=== PATIENT | female | born 1955 | race African-American/Black ===

== ENCOUNTER 2017-01-13 18:05 | Inpatient (IN) | payer MEDICARE, OTHER ==
--- NOTE | ~2017-01-13 | CN ---
Consultation Report [facility] [place] [address] [place]. [address] NAME: JOHN QUINTERO : 53 STATUS : ADM IN PAT#: [id number] AGE: 62 ADM/REG DATE : 01/13/17 MR#: [id number] REPORT SERV DATE: 01/14/17 DICTATED BY: ADANDELIA ALEN DATE: 01/14/17 REPORT STATUS : Draft TRANSCRIBED BY: MODL DATE: 01/14/17 CONSULTATION REPORT DATE OF CONSULTATION: 01/13/2017 REASON FOR CONSULTATION: Consulted for hypertension. IDENTIFYING DATA: 1. PCP Dr. Marc Mark. 2. Neurologist, Dr. Etelvina Macdonald. 3. Submarine Element Coordinator, Dr. Misha Jones. 4. Urologist Dr. Clark Watt III. 5. Surgeon, Dr. Too Zamora. 6. Orthopedist in the past seen by Dr. Boaz Berrios, Asif Rouse, now Dr. Jonel Richardson. 7. Copy Writer, Dr. Malika Martinez. 8. Database Reporting Consultant, Dr. Blu Cesar. 9. Spray Gun Striper, Dr. Piero Liu. HISTORY OF PRESENT ILLNESS: This is a pleasant 62-year-old female with a longstanding history of myasthenia gravis, chronic lumbar pain, radiculopathy, hypertension, previous DVT in the right arm on chronic Coumadin who is admitted for a postop wound infection from a lumbar laminectomy of L4-S1 on 12/24/2016. She is scheduled for procedure in the morning on 01/14/2017 for an irrigation and debridement of lumbar spine wound with Dr. Jonel Richardson. The hospitalist group was consulted for hypertension. The patient's history was obtained through careful interview with the patient coupled with review of [employer], [employer], presales consultant notes and old medical records. PAST MEDICAL HISTORY: 1. The patient wears glasses. Lumbar radiculopathy. 2. Right arm DVT in 2009, on chronic Coumadin. 3. Cervical spinal stenosis. 4. Hemorrhoids. 5. Osteoarthritis. 6. Hypertension. 7. Myasthenia gravis diagnosed in 1972 for which the patient states her left side is affected weaker than the right and she has vision loss in the left eye. 8. Shoulder, hip, and knee pain. 9. Bile acid dumping which she has chronic diarrhea seen by Dr. Piero Liu. 10.Herniation of nucleus pulposus. 11.Spondylolisthesis. 12.Cystocele and rectocele. 13.Asthma. 14.Diplopia which she states is in her left eye for which she does wear a patch at times Consultation Report [facility] [place] [address] [place]. [address] NAME: JOHN QUINTERO : 53 STATUS : ADM IN PAT#: [id number] AGE: 62 ADM/REG DATE : 01/13/17 MR#: [id number] REPORT SERV DATE: 01/14/17 DICTATED BY: DELIA ARELLANO DATE: 01/14/17 REPORT STATUS : Draft TRANSCRIBED BY: MODL DATE: 01/14/17 to that eye. 15.Morbid obesity. BMI of 41.2 and a weight of 240 pounds. 16.Diabetes in the past, even though the patient relates that she is not diabetic but she is on chronic prednisone and has had elevated blood sugars post surgery prior. 17.Left kidney cyst. HOME MEDICATIONS: 1. Atenolol 150 mg p.o. every morning. 2. Keflex 500 mg p.o. twice a day previously started for infection. 3. Prevalite packet 4 g p.o. three times daily for her chronic diarrhea. 4. Neurontin 600 mg p.o. three times daily. 5. IVIG which she sees her neurologist Dr. Etelvina Macdonald, and she received the IVIG one dose daily for five consecutive days every five weeks in Dr. Macdonald's office. 6. Imodium 2 mg p.o. three times daily for diarrhea. 7. CellCept 1000 mg p.o. b.i.d. for her myasthenia gravis. 8. Percocet 5/325 two tablets p.o. every four hours p.r.n. pain. 9. K-Dur 20 mEq p.o. at bedtime. 10.Prednisone 10 mg p.o. every morning which is maintenance therapy for her myasthenia gravis. 11.Mestinon 60 mg p.o. three times daily for her myasthenia gravis. 12.Aldactone 50 mg p.o. every morning. 13.Xopenex two puffs inhalation every three hours p.r.n. shortness of breath. 14.Diovan 320 mg p.o. every morning. 15.Coumadin 4 mg p.o. at bedtime. ALLERGIES: NO KNOWN ALLERGIES. SOCIAL HISTORY: The patient is disabled and lives in a multilevel home with her mother and brother and [id number], uses a walker occasionally a cane, is single and has no children. No smoking, no alcohol. No illicit drug use. FAMILY HISTORY: Family history positive for diabetes and heart disease. Mother had breast cancer and colon polyps. Father was from an MVA. Patient has one brother. SURGICAL HISTORY: 1. Cholecystectomy in the year 1999. 2. Tonsillectomy 1992. 3. Closed fracture of the ankle on 02/16/2013. 4. D and C in 2004. 5. Thymectomy in 1972. 6. Hysterectomy for uterine cancer in 08/2015. 7. Right knee scope in 2007. 8. Left shoulder scope by Dr. Boaz Berrios at that time in 06/2011. 9. Lumbar laminectomy 12/24/2016. 10.Right Port-A-Cath placement in [address] Too Zamora for her plasmapheresis and Consultation Report [address] [address] NAME: JOHN QUINTERO : 53 STATUS : ADM IN [facility]#: [id number] AGE: 62 ADM/REG DATE : 01/13/17 MR#: [id number] REPORT SERV DATE: 01/14/17 DICTATED BY: DELIA ARELLANO DATE: 01/14/17 REPORT STATUS : Draft TRANSCRIBED BY: MODL DATE: 01/14/17 IVIG. 11.Right TKA in 06/21/[address] Rouse. 12.Colonoscopy in 2013. 13.Cystoscopy in 08/2014. 14.Microdiskectomy. 15.L-LANE on 02/20/2016. REVIEW OF SYSTEMS: Negative other than what is included in the HPI. The patient has no shortness of breath. No complaints of fever, no complaints of nausea and vomiting. No chest pain. Displays no agitation, does have chronic diarrhea and states she is not in pain at all at present time for her postop wound infection area. PHYSICAL EXAMINATION: VITAL SIGNS: From today blood pressure 109/52, respiratory rate 16, heart rate 98, temperature 97.8, O2 saturation 98% on room air. GENERAL: This is a pleasant 62-year-old female, resting in bed in no acute distress eating dinner. NEURO: Her head is atraumatic, normocephalic. She is alert and oriented x3. Her mood is pleasant and appropriate. NECK: Supple. Trachea is midline. No JVD noted. No obvious thyromegaly or lymphadenopathy. EENT: Her sclerae are nonicteric. Her pupils are equal, reactive to light. Her nares are patent. Her mucous membranes are moist. Her tongue is midline without deviation. Her soft palate rises equally on phonation. CHEST: No pain with palpation. LUNGS: Clear to auscultation bilaterally. She has normal respiratory effort. No increased work of breathing with conversation. CARDIOVASCULAR: S1, S2. No obvious murmurs, rubs, or gallops. Rhythm is regular. EKG on 01/13/2017 displays normal sinus rhythm with a rate of 81. ABDOMEN: Soft, nontender, with active bowel sounds. No palpable organomegaly. Last bowel movement was on 01/13/2017. EXTREMITIES: Pulses present bilaterally, no edema. No calf tenderness. SKIN: Warm and dry. No unusual rashes, lesions, normal color and turgor for age. PSYCH: The patient is pleasant, cooperative, appropriate mood and affect. SURGICAL WOUND SITE: Her lumbar spine dressing is dry and intact. LABORATORY DATA: Sodium 137, potassium 4.2, chloride 104, BUN 19 creatinine 1.04, glucose 131, calcium 8.8. White blood cell 13.6, hemoglobin 11.2, hematocrit 35.6, platelets 291,000, total protein 7.4, albumin 2.7, globulin 4.7, total bilirubin 0.4, alkaline phosphatase 318, ALT 19, AST 28, PT 22.4, INR 2.0, hemoglobin A1c 6.2, blood sugars were 131 on labs and presently blood sugar is 87, ordered a chest x-ray for 01/13/2017. EKG done on 01/13/2017 displayed normal sinus rhythm, rate of 81. ASSESSMENT/PLAN: Consultation Report [facility] [address] [place]. [address] NAME: JOHN QUINTERO : 53 STATUS : ADM IN [facility]#: [id number] AGE: 62 ADM/REG DATE : 01/13/17 MR#: [id number] REPORT SERV DATE: 01/14/17 DICTATED BY: ADANDELIAN DATE: 01/14/17 REPORT STATUS : Draft TRANSCRIBED BY: HIEN DATE: 01/14/17 1. Hypertension. Aware. The patient does have a history of high blood pressure although she relates her blood pressure has been running on the low side within the last week or so. We will hold her diuretic and valsartan postoperatively and continue her atenolol with parameters to hold for heart rate less than 60 and systolic blood pressures less than 110. 2. Myasthenia gravis. Aware, followed by a neurologist Dr. Sophie Macdonald. She does have a consult for Dr. Macdonald to follow her postoperatively in the hospital. We will continue her medications of prednisone, CellCept, and Mestinon for her myasthenia gravis. 3. Elevated glucose. On labs, her blood sugar was 133. She states that they have told her she has had a history of diabetes, but she is followed by her PCP and he states that her A1c was within range. She is not on any medications for diabetes. No history per patient. We will check her hemoglobin A1c which we did which was 6.2, but since she will probably receive IV steroids postoperatively, we will continue fingerstick blood sugars a.c. and h.s. and staff can call for blood sugars greater than 150. 4. Asthma. Aware. She is on inhalation therapy p.r.n. at home. We will continue defensive monitoring and monitor her O2 saturation. She does have chronic weakness due to her myasthenia gravis and will also continue her Xopenex. 5. Postoperative wound. Aware. The patient is admitted by Dr. Jonel Richardson for an a.m. procedure for her postop wound infection. Orders will be per Dr. Richardson and orders at present are to hold antibiotics until cultures are obtained. A.m. labs, BMP, magnesium CBC, hemoglobin A1c, urinalysis, portable chest x-ray, EKG PT and INR and phosphorus. The hospitalist group would like to thank you for this consultation. Please let us know if we can be of any further assistance. ANNETTA Delia Arellano NP / [id number] CC: DO Marc Greer M.D.
--- NOTE | ~2017-01-13 | OP ---
Record Of Operation [facility] [address] [place]. [address] NAME: JOHN QUINTERO : 53 STATUS : ADM IN PAT#: [id number] AGE: 62 ADM/REG DATE : 01/13/17 MR#: [id number] REPORT SERV DATE: 01/16/17 DICTATED BY: JONEL TINOCO DATE: 01/16/17 REPORT STATUS : Draft TRANSCRIBED BY: MODL DATE: 01/16/17 DATE OF PROCEDURE: 01/16/2017 PREOPERATIVE DIAGNOSIS: Superficial wound infection, lumbar spine. POSTOPERATIVE DIAGNOSIS: Superficial wound infection, lumbar spine. PROCEDURE: Removal of previously placed VAC sponge, primary wound closure, irrigation and debridement (washout) and placement of Prevena incisional VAC sponge. SURGEON: Jonel Tinoco DO. ANESTHESIA: General. ESTIMATED BLOOD LOSS: 5 mL. COMPLICATIONS: None. INDICATIONS: The patient is a pleasant, 62-year-old, who had, had a previous lumbar fusion, had a wound dehiscence, and superficial infection, was taken to the OR two days ago, had a washout and debridement of skin and subcutaneous tissue. She had a VAC sponge placed and brought back today for possible closure. DESCRIPTION OF PROCEDURE: I identified the patient in the holding area. Consent was obtained. Went to the operating room. Underwent general anesthesia with endotracheal intubation. Prepped and draped in the usual sterile fashion. Operative safety pause was performed, and then proceeded. Wound VAC was removed, 3 L of pulsatile irrigation used for irrigation, followed by Betadine and saline irrigation. Wound was then reapproximated with #1 and 2-0 PDS nylon for skin and Prevena incisional VAC sponge was placed over the skin. The patient was awoken and extubated taken to the recovery room in stable condition. OPERATIVE FINDINGS: No signs of purulence or infected material. FUENTES/HIEN Jonel Tinoco DO / [id number] CC: DO Marc Greer M.D.
--- NOTE | ~2017-01-13 | CN ---
Consultation Report [facility] [address] [place]. [address] NAME: JOHN QUINTERO : 53 STATUS : ADM IN [facility]#: [id number] AGE: 62 ADM/REG DATE : 01/13/17 MR#: [id number] REPORT SERV DATE: 01/15/17 DICTATED BY: MOSHE MCMILLAN DATE: 01/15/17 REPORT STATUS : Draft TRANSCRIBED BY: MODL DATE: 01/15/17 INFECTIOUS DISEASE CONSULT DATE OF CONSULTATION: REASON FOR REFERRAL: Evaluation and treatment of postoperative wound infection. HISTORY OF PRESENT ILLNESS: The patient is a 62-year-old female. She has a history of hypertension and myasthenia gravis that was diagnosed in the early 1970s. She has had chronic difficulties with back pain, spine pathology, and so underwent an elective procedure here at [facility] on 12/24/[address] Richardson an L4-S1 laminectomy and instrumented fusion. In her postoperative visit, her wound was not healing and concern raised for infection. She had no fevers, chills, malaise, or flu-like symptoms. No increased pain, just poor closure. New dressing was placed on it on 12/12/2016 and she was started empirically on Keflex, but it continued to worsen, so Dr. Richardson saw her two days ago, admitted her and did an incision and drainage yesterday with findings of no gross purulence, no evidence of deep infection. She has remained afebrile here. She received empiric vancomycin and Ancef at the time of procedure. The cultures were reviewed by me this morning and there were three colonies of gram-negative rods growing with no other organisms. No bacteria were seen on Gram stain. PAST MEDICAL HISTORY: Otherwise, unremarkable. There have been no unusual environmental exposures or trauma to the wound since the time of surgery. MEDICATIONS: She was on Keflex as previously mentioned. ALLERGIES: NO ANTIMICROBIAL ALLERGIES. SOCIAL HISTORY: She has been disabled by this during most of her adult life. She is single, nonsmoker. No history of alcohol or substance abuse. FAMILY HISTORY: Noncontributory. PHYSICAL EXAMINATION: GENERAL: A nontoxic adult female, in no acute distress. She is alert and oriented x3. VITAL SIGNS: Her temperature has been normal, here it is 98.5 at present with a pulse of 71, respirations 20, blood pressure 92/51, weight is 108 kg. HEENT: Sclerae clear. No oropharyngeal lesions. NECK: Supple without lymphadenopathy. LUNGS: Clear to auscultation. HEART: Regular rate and rhythm. ABDOMEN: Soft, nontender. Positive bowel sounds. Back wound is covered by VAC pack. EXTREMITIES: Without clubbing or cyanosis. No skin lesions or rashes. IV site without signs of inflammation. Consultation Report [address] [place] [address] NAME: JOHN QUINTERO : [birth year] STATUS : ADM IN PAT#: [id number] AGE: 62 ADM/REG DATE : 01/13/17 MR#: [id number] REPORT SERV DATE: 01/15/17 DICTATED BY: MOSHE MCMILLAN DATE: 01/15/17 REPORT STATUS : Draft TRANSCRIBED BY: HIEN DATE: 01/15/17 LABORATORY DATA: White blood cell count 13.6 when she came in, reached 17 yesterday, it is 12.2 today with a hematocrit of 31.1, platelets 243. Unremarkable differential on the white blood cell count. BUN and creatinine are 17 and 0.95. Alkaline phosphatase mildly elevated at 318. IMPRESSION: Postoperative wound infection after spine surgery. At this point, does not appear to be deep and is growing just Gram negative rods on cultures. RECOMMENDATIONS: 1. We will change to IV cefepime to cover this organism. We are waiting on final cultures. 2. Review the cultures tomorrow. Change antibiotics as indicated. 3. It does not appear to be deep, so likely just two weeks of antibiotics postoperative will be required. Finally, I will follow the patient with you. I appreciate very much your consulting on this patient. PITER Moshe Mcmillan M.D. / [id number] CC: Jonel Richardson, DO Marc Mark M.D.
--- NOTE | ~2017-01-13 | DS ---
Discharge Summary [facility] [address] [place]. [address] NAME: JOHN QUINTERO : 53 STATUS : DIS IN PAT#: [id number] AGE: 62 ADM/REG DATE : 01/13/17 MR#: [id number] REPORT SERV DATE: 01/24/17 DICTATED BY: JONEL RICHARDSON DATE: 01/24/17 REPORT STATUS : Draft TRANSCRIBED BY: HIEN DATE: 01/24/17 Data Collection from hospitalization DISCHARGE DIAGNOSES: 1. Postoperative wound dehiscence - possible infection. 2. Hypertension. 3. Myasthenia gravis. 4. Arthritis. 5. Diabetes in the past. 6. Hemorrhoids. 7. Diplopia. 8. Morbid obesity. 9. Asthma. 10.History of bile acid dumping. 11.History of herniation of nucleus pulposus. 12.History of spondylolisthesis. 13.History of cystocele and rectocele. CONSULTATIONS: 1. Delia Hampton NP. 2. Ricardo Rajan M.D. 3. Sebas Marcum MD. PROCEDURES PERFORMED: 1. Incision and debridement of the lumbar spine with debridement of skin and underlying subcutaneous tissue, placement of wound VAC sponge, wound was approximately 15 x 6.5 x 2.5 cm in size on 01/14/2017. 2. Removal of previously placed VAC sponge, primary wound closure, irrigation and debridement (washout), and placement of Prevena incisional VAC sponge on 01/16/2017. PATHOLOGY: Skin and subcutaneous tissue, lumbar spine, debridement - transepidermal ulceration with underlying scarring and mixed inflammation. MEDICATIONS: Tenormin 150 mg every morning as instructed, Prevalite 4 g three times a day as instructed, Cipro 500 mg every 12 hours for 12 days, Flexeril 10 mg every eight hours as needed, Neurontin 600 mg three times a day, IVIG one dose as instructed for five consecutive days every five weeks, Imodium 2 mg three times a day, CellCept 1000 mg twice a day as instructed, Percocet 5/325 one to two tablets every four hours as needed, Deltasone 10 mg every morning, Mestinon 60 mg three times a day, Xopenex two puffs via inhaler every three hours as needed, and Coumadin 4 mg at bedtime as instructed. CONDITION AT DISCHARGE: Stable. DISPOSITION: The patient was discharged home on a regular diet with protein shakes and activities as instructed. She would follow up with me two weeks following discharge and with Dr. Marc Mark on 01/22/2017. HOSPITAL COURSE: This is a 62-year-old female who had undergone a previous L4-S1 laminectomy Discharge Summary [facility] [address] [place]. [address] NAME: JOHN QUINTERO : 53 STATUS : DIS IN PAT#: [id number] AGE: 62 ADM/REG DATE : 01/13/17 MR#: [id number] REPORT SERV DATE: 01/24/17 DICTATED BY: JONEL RICHARDSON DATE: 01/24/17 REPORT STATUS : Draft TRANSCRIBED BY: HIEN DATE: 01/24/17 and instrumented fusion by me on 12/24/2016. She had initial wound healing problems and was placed on oral antibiotics and failed to improve. She continued to have an area of dehiscence. She had no purulent drainage, but the skin edges had not approximated well. Treatment options were discussed and it was elected to proceed with surgical intervention. She was admitted to the hospital for further evaluation and treatment. Upon admission, she was seen by Delia Hampton regarding hypertension. White blood cell count was 13.6. Hemoglobin A1c was 6.2. The patient said that her blood pressure had been running on the low side over the past week or so. Her diuretic and valsartan were going to be held postoperatively and we would continue her atenolol with parameters to hold for heart rate less than 60 and systolic blood pressure less than 110. She does have myasthenia gravis and is followed by Dr. Etelvina Macdonald. She is not on any medication for her diabetes. Her hemoglobin A1c was 6.2, but she will probably receive IV steroids postoperatively. She was on inhalation therapy at home. Defensive monitoring was continued. We would monitor her O2 saturation. Xopenex was also continued. The following day, she was taken to the operating room where she underwent the above-mentioned procedure. She tolerated this well, and there were no complications. Blood pressure was currently on the lower side. She was currently n.p.o. IV fluids were increased. On 01/15/2017, her pain was controlled. She remained comfortable. She had no chest pain or shortness of breath. She was afebrile. Her blood pressure was currently borderline in the 90s, systolic. Atenolol would be held if systolic blood pressure was less than 100. Her hyperglycemia was felt related to D5 and the IV fluids. She was seen by Dr. Ricardo Rajan for evaluation and treatment of postoperative wound infection and has remained afebrile here. She received vancomycin and Ancef at the time of her procedure. Cultures that morning revealed 3 colonies of gram-negative rods growing with no other organism. No bacteria were seen on Gram stain. White blood cell count was now 12.2. Alkaline phosphatase was mildly elevated at 318. At this point, the postoperative wound infection after spine surgery did not appear to be deep and was growing just gram-negative rods on culture. We were going to be change to IV cefepime to cover this organism and we would wait on final cultures. It was felt that likely two weeks of antibiotics postoperatively would be required. She was evaluated by Physical Therapy. She was seen by Dr. Sebas Marcum regarding her history of myasthenia gravis. The patient does have baseline left-sided hemiparesis due to her myasthenia gravis, which according to the patient had not been significantly worse. She sees Dr. Etelvina Macdonald for her myasthenia gravis. Her next IVIG infusion was due on 01/20/2017. Her symptoms were currently stable. She was recommended to go ahead with her scheduled IVIG therapy infusions. CellCept, Mestinon, and prednisone were continued. On postop day #2, she had no new symptoms. She remained afebrile. She was evaluated by Physical Therapy. She continued to progress. On 01/17/2017, her pain was controlled. She was doing well. She said she was feeling better. She remained afebrile. Discharge instructions were given. Due to her improved and stable condition, she was discharged home with the above-stated instructions. Information collected by: Mary Sheridan I submit the above information as my discharge summary. TG/MODL Discharge Summary [facility] [address] [address] NAME: JOHN QUINTERO : 53 STATUS : DIS IN PAT#: [id number] AGE: 62 ADM/REG DATE : 01/13/17 MR#: [id number] REPORT SERV DATE: 01/24/17 DICTATED BY: JONEL RICHARDSON DATE: 01/24/17 REPORT STATUS : Draft TRANSCRIBED BY: JACKSONL DATE: 01/24/17 Jonel Richardson DO / [id number] CC: DO Marc Greer M.D. Chun C. Huang, MD Mark Anderson, M.D.
--- NOTE | ~2017-01-13 | HP ---
History And Physical [address] [place]. [address] NAME: JOHN QUINTERO : 53 STATUS : ADM IN PAT#: [id number] AGE: 62 ADM/REG DATE : 01/13/17 MR#: [id number] REPORT SERV DATE: 01/14/17 DICTATED BY: JONEL TINOCO DATE: 01/14/17 REPORT STATUS : Draft TRANSCRIBED BY: MODL DATE: 01/14/17 DATE OF ADMISSION: 01/13/2017 CHIEF COMPLAINT: Postoperative wound dehiscence, possible infection. HISTORY OF PRESENT ILLNESS: The patient is a pleasant 62-year-old who had undergone a previous L4-S1 laminectomy and instrumented fusion by me on 12/24/2016. She had initial wound healing problems and was placed on oral antibiotics and failed to improve and has continued area of dehiscence. No purulent drainage, but the skin edges have not approximated well. As a result, I recommended admission for irrigation and debridement. REVIEW OF SYSTEMS: She denies chest pain, shortness of breath, and bowel or bladder changes. ALLERGIES: DENIED. HOME MEDICATIONS: Include Percocet and Flexeril. PAST MEDICAL HISTORY: Includes hypertension and myasthenia gravis. FAMILY HISTORY: Noncontributory. PHYSICAL EXAMINATION: GENERAL: The patient is healthy appearing, in no acute distress. PSYCH: Alert and oriented x3. Normal mood and affect. Gait is antalgic. VASCULAR: No extremity swelling. SPINE: Postoperative wound dehiscence. NEUROLOGIC: Strength in lower extremities remains intact. No focal deficits. HEART: Regular rate and rhythm. LUNGS: Clear to auscultation. ABDOMEN: Soft, nontender, and nondistended. Good bowel sounds. BREASTS AND RECTAL: Both deferred. IMAGING: No new imaging was obtained. ASSESSMENT: Postoperative wound dehiscence, possible infection. PLAN: The patient is being admitted to the hospital for irrigation and debridement tomorrow. FUENTES/HIEN Jonel Tinoco DO History And Physical [address] [address] NAME: JOHN QUINTERO : 53 STATUS : ADM IN PAT#: [id number] AGE: 62 ADM/REG DATE : 01/13/17 MR#: [id number] REPORT SERV DATE: 01/14/17 DICTATED BY: JONEL TINOCO DATE: 01/14/17 REPORT STATUS : Draft TRANSCRIBED BY: HIEN DATE: 01/14/17 / [id number] CC: DO Marc Greer M.D.
--- NOTE | ~2017-01-13 | OP ---
Record Of Operation [facility] [address] [place]. [address] NAME: JOHN QUINTERO : 53 STATUS : ADM IN PAT#: [id number] AGE: 62 ADM/REG DATE : 01/13/17 MR#: [id number] REPORT SERV DATE: 01/14/17 DICTATED BY: JONEL RICHARDSON DATE: 01/14/17 REPORT STATUS : Draft TRANSCRIBED BY: MODL DATE: 01/14/17 DATE OF PROCEDURE: 01/14/2017 PREOPERATIVE DIAGNOSIS: Postoperative wound dehiscence, possible infection. POSTOPERATIVE DIAGNOSIS: Postoperative wound dehiscence, possible infection. PROCEDURE: 1. Incision and debridement of lumbar spine with debridement of skin and underlying subcutaneous tissue. 2. Placement of wound VAC sponge. Wound was approximately 15 x 6.5 x 2.5 cm in size. SURGEON: Jonel Richardson DO ANESTHESIA: General. ESTIMATED BLOOD LOSS: 10 mL. COMPLICATIONS: None. INDICATIONS: The patient is a pleasant 62-year-old who had a previous lumbar fusion, had postoperative wound dehiscence, possible infection. After discussion of risks and benefits, elected to proceed with surgical intervention. DESCRIPTION OF PROCEDURE: I identified the patient in the holding area. Consent was obtained. Went to the operating room. Underwent general anesthesia with endotracheal intubation. Turned to prone position, prepped and draped in the usual sterile fashion. Operative safety pause was performed, then we proceeded. An elliptical incision was made over her previous surgical wound. It was excised along with underlying subcutaneous tissue. Cultures were obtained at that layer and sent for pathologic analysis. 3 liters of pulsatile irrigation were performed. At that point, it was felt that the skin edges were too far apart and would have too much tension for primary closure. The edges on each ends were closed with #1 and 2-0 PDS and then a VAC sponge was placed in the central portion of the incision and had a good seal. The patient returned to supine position, awoke, extubated, and taken to recovery room in stable condition with plans for return to the OR on for VAC sponge change and possible wound closure. OPERATIVE FINDINGS: No signs of purulent material. No signs of infection. No communication with the deep layer. The fascial layer was intact. FUENTES/HIEN Jonel Richardson DO Record Of Operation [address] [place]. [address] NAME: JOHN QUINTERO : 53 STATUS : ADM IN PAT#: [id number] AGE: 62 ADM/REG DATE : 01/13/17 MR#: [id number] REPORT SERV DATE: 01/14/17 DICTATED BY: JONEL RICHARDSON DATE: 01/14/17 REPORT STATUS : Draft TRANSCRIBED BY: HIEN DATE: 01/14/17 / [id number] CC: DO Marc Greer M.D.
--- NOTE | ~2017-01-13 | CN ---
Consultation Report [facility] [address] [facility] [place] [address] NAME: JOHN QUINTERO : 53 STATUS : ADM IN PAT#: [id number] AGE: 62 ADM/REG DATE : 01/13/17 MR#: [id number] REPORT SERV DATE: 01/15/17 DICTATED BY: DATE: REPORT STATUS : Draft TRANSCRIBED BY: MODL DATE: 01/15/17 NEUROLOGY CONSULTATION DATE OF CONSULTATION: 01/15/2017 REASON FOR CONSULT: History of myasthenia gravis. HISTORY OF PRESENT ILLNESS: This is a 62-year-old female with longstanding myasthenia gravis, currently on CellCept, prednisone as well as Mestinon with the patient received IVIG for five days every five weeks, presented to [facility] secondary to wound dehiscence on a previous lumbar spine surgery and concern for possible infection. The patient was status post surgical debridement and drainage on 01/14/2017. Currently denies any worsening of myasthenia gravis and she specifically denies significant breathing difficulty. Denies dysarthria. Denies dysphagia. Denies worsening diplopia. The patient does have baseline left-sided hemiparesis due to her myasthenia gravis which according to the patient has not been significantly worse. Denies any numbness. The patient denies any recent changes in medication. She at baseline sees Dr. Etelvina Macdonald for her myasthenia gravis. Her next IVIG infusion is due on January 20, 2017. PAST MEDICAL HISTORY: Significant for lumbar radiculopathy with recent lumbar spine surgery as well as wound dehiscence, status post surgical debridement on 01/14/2017 with a history of right arm DVT on chronic Coumadin, history of cervical spine stenosis, hemorrhoids, osteoarthritis, hypertension, myasthenia gravis, currently is evaluated and followed by Dr. Etelvina Macdonald. Shoulder and hip as well as knee pain syndrome, radiation; cystocele as well as rectocele; asthma; baseline diplopia; diabetes, the patient at baseline ambulates with a walker. ALLERGIES: SHE REPORTS NO KNOWN DRUG ALLERGIES. HOME MEDICATIONS: Consist of atenolol, Keflex, cholestyramine, Neurontin, IVIG every 5 weeks with next dose scheduled on 01/20/2017; Imodium; CellCept; Percocet; potassium; prednisone; Mestinon; Aldactone; Xopenex inhaler; Diovan; and Coumadin. REVIEW OF SYSTEMS: Negative except for those mentioned in the HPI. SOCIAL HISTORY: Denies tobacco, alcohol, or recreational drug usage. PHYSICAL EXAMINATION: VITAL SIGNS: Overnight patient was noted to have vital signs with T-max of 98.5, heart rate of 71 to 100, respiration of 20 to 27, and blood pressure of 91 to 110 over 50 to 86. GENERAL: The patient is well developed, well nourished, in no acute distress. CARDIOVASCULAR: Regular rate and rhythm. No carotid bruits were otherwise auscultated. PULMONARY: Clear to auscultation bilaterally. Consultation Report [address] [place]. [address] NAME: JOHN QUINTERO : 53 STATUS : ADM IN PAT#: [id number] AGE: 62 ADM/REG DATE : 01/13/17 MR#: [id number] REPORT SERV DATE: 01/15/17 DICTATED BY: DATE: REPORT STATUS : Draft TRANSCRIBED BY: MODL DATE: 01/15/17 NEUROLOGICAL: Generally the patient is alert, oriented to person, place, year, and month. Mild dysarthria was noted. No significant aphasia was appreciated. Intact registration and recall. Cranial nerves 2 through 12, pupils equal, round, and reactive to light. Dysconjugate gaze was noted with the patient was noted to have extraocular eye movement. Intact blink to threat response was noted to be intact. Symmetrical facial expression. Sensation midline. Tongue normal. Normal palatal movement. Normal hearing. The patient demonstrated 4+/5 left upper and left lower extremity strength; 5/5 right upper and right lower extremity strength. Reports symmetrical sensation. Normal [id number] examination without ataxia. Deep tendon reflex was 2+ throughout. Gait was deferred secondary to recent lumbar spine surgery. LABORATORY STUDIES: Demonstrated white blood cell count of 12.2, hemoglobin of 9.2, hematocrit of 31.1, and platelet count of 243. Chemistry panel: Sodium 136, potassium 4.6, chloride 106, bicarb 20, BUN of 17, creatinine of 0.95, glucose of 158, and calcium of 8.2. was otherwise available at the time of evaluation. IMPRESSION: Myasthenia gravis. Currently symptoms stable. The patient denies any significant worsening compared to baseline symptoms. We are recommending continued CellCept, Mestinon as well as prednisone, PT/OT. If the patient is unfortunately still in the hospital by 01/20/2017, we are recommending to go ahead with the patient's scheduled IVIG therapy infusion. RECOMMENDATION: 1. Continue CellCept, Mestinon, as well as prednisone. 2. We will start the patient on IVIG infusion of 4 to 5 days if the patient is still in the hospital by 01/20/2017. 3. PT/OT. 4. We will sign off. Call with questions. [facility]/MODL Sebas Marcum MD / [id number] CC: DO Marc Greer M.D.
[~2017-01-13 18:05] MED LIST: ACET500CAP PO; ATEN100 PO; ATEN50 PO; CELLCEPT5 PO; COUMADIN4 MG PO; DIOVAN320 MG PO; FLEX PO; GAMUNEX 10%; IMOD PO; IVIG IM; IVIGPOW; IVIGPOW IV; KLOR-CON M2020 MEQ PO; LORTAB 5 PO; MICARDIS80 PO; NEUR300 PO; NEUR600 PO; NORCO1 TA1 PO; ORAPRED ODT10 MG PO; P10 PO; PCET PO; PROVHFA INH; PYRID60 PO; QUESTRAN4 GM PO; SPIRO50 PO; TYLENOL ARTH650 MG PO; ULTRAM50 PO; VESICARE5 PO; VOLTAREN1 % TOP; XOPEN0.5ML INH; XOPENEX HFA INH; ZAROX2.5B PO; [UNRECOGNIZED DRUG - OTHER] PO
[2017-01-13 19:29] LABS: HEMOGLOBIN 11.2 g/dL (12.0-16.0); MEAN CORPUS HGB CONC 31.5 g/dL (32.0-36.0); MEAN CORPUSCULAR HEMOGLOB 30.5 pg (26.0-34.0); MEAN PLATELET VOLUME 9.6 fL (9.2-13.0); RBC DISTRIBUTION WIDTH 13.6 % (12.0-16.0); RED CELL COUNT 3.67 10/6/uL (4.0-5.6); WHITE BLOOD CELLS 13.6 10/3/uL (4.5-10.5)
[2017-01-13 19:31] LABS: HEMATOCRIT 35.6 % (36.0-48.0); MANUAL DIFF YES %; PLATELET COUNT 291 10/3/uL (150-400)
[2017-01-13 19:41] LABS: A/G RATIO 0.6 (0.7-1.9); ALBUMIN 2.7 G/DL (3.5-5.0); ALKALINE PHOSPHATASE 318 U/L (45-117); BUN (BLOOD UREA NITROGEN) 19 MG/DL (6-23); CALCIUM, SERUM 8.8 MG/DL (8.5-10.4); CHLORIDE, SERUM 104 MMOL/L (96-112); CO2 (CARBON DIOXIDE) 26 MMOL/L (24-34); CREATININE 1.04 MG/DL (0.55-1.02); GFR AFRICAN AMERICAN 66 ML/MIN (>=60); GFR NON AFRICAN AMERICAN 57 ML/MIN (>=60); GLOBULIN 4.7 G/DL (2.5-4.1); GLUCOSE, SERUM 131 MG/DL (60-99); POTASSIUM, SERUM 4.2 MMOL/L (3.5-5.3); SGOT(AST) 28 U/L (5-40); SGPT(ALT) 19 U/L (5-65); SODIUM, SERUM 137 MMOL/L (135-148); TOTAL BILIRUBIN 0.4 MG/DL (0-1.2); TOTAL PROTEIN 7.4 G/DL (6.0-8.5)
[2017-01-13 20:45] LABS: EOSINOPHILS 2 %; EOSINOPHILS ABSOLUTE (CALC) 0.27 10/3/uL (0.0-0.53); IMMATURE GRANS ABSOLUTE (CALC) 0.14 10/3/uL (0.0-0.11); LYMPHOCYTES 16 %; LYMPHOCYTES ABSOLUTE (CALC) 2.18 10/3/uL (0.67-4.30); METAMYELOCYTES 1 %; MONOCYTES 3 %; MONOCYTES ABSOLUTE (CALC) 0.41 10/3/uL (0.21-1.20); NEUTROPHILS ABSOLUTE (CALC) 10.61 10/3/uL (2.02-8.40); PLATELET ESTIMATE ADQ (ADEQUATE); RBC MORPHOLOGY NORM (NORMAL); SEGMENTED NEUTROPHIL (0) 78 %; TOTAL NUCLEATED CELLS 100
[2017-01-13 21:09] LABS: SED RATE 69 MM/HR (0-20)
[2017-01-13 21:34] LABS: C-REACTIVE PROTEIN 20.4 MG/L (<8.0)
[2017-01-13 21:36] LABS: PHOSPHORUS, SERUM 3.5 MG/DL (2.5-4.5)
[2017-01-13] MEDS ORDERED: IVIGLIQ IV (22:12)
[2017-01-13] MEDS ORDERED: PYRID60 PO (22:14)
[2017-01-13] MEDS ORDERED: CELLCEPT5 PO (22:14)
[2017-01-13] MEDS ORDERED: DIOVAN320 MG PO (22:15)
[2017-01-13] MEDS ORDERED: ATEN50 PO (22:15)
[2017-01-13] MEDS ORDERED: P10 PO (22:15)
[2017-01-13] MEDS ORDERED: SPIRO50 PO (22:15)
[2017-01-13] MEDS ORDERED: IMOD PO (22:16)
[2017-01-13] MEDS ORDERED: KDUR20 PO (22:16)
[2017-01-13] MEDS ORDERED: PREVALITE4 G1 PO (22:16)
[2017-01-13] MEDS ORDERED: COUMADIN4 MG PO (22:16)
[2017-01-13] MEDS ORDERED: XOPENEX HFA INHALER INH (22:17)
[2017-01-13] MEDS ORDERED: PCET PO (22:18)
[2017-01-13] MEDS ORDERED: NEUR600 PO (22:18)
[2017-01-13] MEDS ORDERED: K500 PO (22:19)
[2017-01-13 23:09] LABS: PROTIME (NOT ORD) 22.4 SEC (12.0-14.5)
[2017-01-14 01:28] LABS: ASCORBIC ACID (UR NOT ORDER) NEG (NEG); BILIRUBIN, URINE NEGATIVE (NEG); KETONE, URINE NEGATIVE (NEG); LEUKOCYTE ESTERASE(NOT OR NEG (NEG); WBC (NOT ORDERED) (RFLEX) 1 (0-5)
[2017-01-14 10:32] LABS: BASOPHILS 0.2 %; BASOPHILS ABSOLUTE 0.04 10/3/uL (0.0-0.16); EOSINOPHILS 1.1 %; EOSINOPHILS ABSOLUTE 0.19 10/3/uL (0.0-0.53); HEMATOCRIT 35.9 % (36.0-48.0); IMMATURE GRANULOCYTES 0.5 %; IMMATURE GRANULOCYTES ABSOLUTE 0.09 10/3/uL (0.0-0.11); LYMPHOCYTES 17.9 %; LYMPHOCYTES ABSOLUTE 3.05 10/3/uL (0.67-4.30); MEAN CORPUS HGB CONC 30.6 g/dL (32.0-36.0); MEAN CORPUSCULAR HEMOGLOB 29.2 pg (26.0-34.0); MEAN CORPUSCULAR VOLUME 95.2 fL (80-100); MEAN PLATELET VOLUME 9.8 fL (9.2-13.0); MONOCYTES 9.2 %; MONOCYTES ABSOLUTE 1.56 10/3/uL (0.21-1.20); NEUTROPHILS 71.1 %; PLATELET COUNT 266 10/3/uL (150-400); RBC DISTRIBUTION WIDTH 13.8 % (12.0-16.0); RED CELL COUNT 3.77 10/6/uL (4.0-5.6)
[2017-01-14 10:33] LABS: MANUAL DIFF NO %
[2017-01-14 10:43] LABS: BUN (BLOOD UREA NITROGEN) 20 MG/DL (6-23); CHLORIDE, SERUM 105 MMOL/L (96-112); CO2 (CARBON DIOXIDE) 25 MMOL/L (24-34); CREATININE 0.85 MG/DL (0.55-1.02); GFR AFRICAN AMERICAN 85 ML/MIN (>=60); GFR NON AFRICAN AMERICAN 73 ML/MIN (>=60); GLUCOSE, SERUM 83 MG/DL (60-99); POTASSIUM, SERUM 4.8 MMOL/L (3.5-5.3); SODIUM, SERUM 140 MMOL/L (135-148)
[2017-01-14 11:28] LABS: HYPOCHROMIA 1+ (3-10/OIF) (0-2/OIF); PLATELET ESTIMATE ADQ (ADEQUATE)
[2017-01-14 18:22] LABS: BASOPHILS 0.1 %; BASOPHILS ABSOLUTE 0.01 10/3/uL (0.0-0.16); EOSINOPHILS 0.8 %; HEMATOCRIT 33.7 % (36.0-48.0); HEMOGLOBIN 10.1 g/dL (12.0-16.0); IMMATURE GRANULOCYTES 0.2 %; IMMATURE GRANULOCYTES ABSOLUTE 0.03 10/3/uL (0.0-0.11); LYMPHOCYTES 9.2 %; LYMPHOCYTES ABSOLUTE 1.16 10/3/uL (0.67-4.30); MEAN CORPUSCULAR HEMOGLOB 28.8 pg (26.0-34.0); MEAN PLATELET VOLUME 9.3 fL (9.2-13.0); MONOCYTES ABSOLUTE 0.63 10/3/uL (0.21-1.20); NEUTROPHILS 84.7 %; NEUTROPHILS ABSOLUTE 10.68 10/3/uL (2.02-8.40); PLATELET COUNT 264 10/3/uL (150-400); RBC DISTRIBUTION WIDTH 13.9 % (12.0-16.0); RED CELL COUNT 3.51 10/6/uL (4.0-5.6); WHITE BLOOD CELLS 12.6 10/3/uL (4.5-10.5)
[2017-01-14 18:23] LABS: MANUAL DIFF NO %
[2017-01-14 18:34] LABS: BUN (BLOOD UREA NITROGEN) 16 MG/DL (6-23); CALCIUM, SERUM 8.7 MG/DL (8.5-10.4); CHLORIDE, SERUM 104 MMOL/L (96-112); CO2 (CARBON DIOXIDE) 28 MMOL/L (24-34); CREATININE 0.94 MG/DL (0.55-1.02); GFR AFRICAN AMERICAN 75 ML/MIN (>=60); GFR NON AFRICAN AMERICAN 65 ML/MIN (>=60); GLUCOSE, SERUM 105 MG/DL (60-99); SODIUM, SERUM 139 MMOL/L (135-148)
[2017-01-15 08:20] LABS: BASOPHILS 0.2 %; BASOPHILS ABSOLUTE 0.02 10/3/uL (0.0-0.16); EOSINOPHILS 2.2 %; EOSINOPHILS ABSOLUTE 0.27 10/3/uL (0.0-0.53); HEMATOCRIT 31.1 % (36.0-48.0); HEMOGLOBIN 9.2 g/dL (12.0-16.0); IMMATURE GRANULOCYTES 0.2 %; IMMATURE GRANULOCYTES ABSOLUTE 0.03 10/3/uL (0.0-0.11); LYMPHOCYTES 19.6 %; MANUAL DIFF NO %; MEAN CORPUS HGB CONC 29.6 g/dL (32.0-36.0); MEAN CORPUSCULAR HEMOGLOB 29.2 pg (26.0-34.0); MEAN CORPUSCULAR VOLUME 98.7 fL (80-100); MEAN PLATELET VOLUME 9.2 fL (9.2-13.0); MONOCYTES 6.9 %; MONOCYTES ABSOLUTE 0.85 10/3/uL (0.21-1.20); NEUTROPHILS 70.9 %; NEUTROPHILS ABSOLUTE 8.67 10/3/uL (2.02-8.40); PLATELET COUNT 243 10/3/uL (150-400); RBC DISTRIBUTION WIDTH 13.9 % (12.0-16.0); RED CELL COUNT 3.15 10/6/uL (4.0-5.6); WHITE BLOOD CELLS 12.2 10/3/uL (4.5-10.5)
[2017-01-15 08:38] LABS: BUN (BLOOD UREA NITROGEN) 17 MG/DL (6-23); CALCIUM, SERUM 8.2 MG/DL (8.5-10.4); CHLORIDE, SERUM 106 MMOL/L (96-112); CREATININE 0.95 MG/DL (0.55-1.02); GFR AFRICAN AMERICAN 74 ML/MIN (>=60); GFR NON AFRICAN AMERICAN 64 ML/MIN (>=60); POTASSIUM, SERUM 4.6 MMOL/L (3.5-5.3); SODIUM, SERUM 136 MMOL/L (135-148)
[2017-01-15 08:39] LABS: CO2 (CARBON DIOXIDE) 20 MMOL/L (24-34); GLUCOSE, SERUM 158 MG/DL (60-99)
[2017-01-16 14:51] LABS: CALCIUM, SERUM 8.3 MG/DL (8.5-10.4); CHLORIDE, SERUM 109 MMOL/L (96-112); CREATININE 0.72 MG/DL (0.55-1.02); GFR AFRICAN AMERICAN 103 ML/MIN (>=60); GFR NON AFRICAN AMERICAN 89 ML/MIN (>=60); POTASSIUM, SERUM 4.2 MMOL/L (3.5-5.3)
[2017-01-16 14:53] LABS: BUN (BLOOD UREA NITROGEN) 13 MG/DL (6-23); CO2 (CARBON DIOXIDE) 26 MMOL/L (24-34); GLUCOSE, SERUM 87 MG/DL (60-99); SODIUM, SERUM 143 MMOL/L (135-148)
[2017-01-16 14:53] LABS: BASOPHILS 0.2 %; BASOPHILS ABSOLUTE 0.03 10/3/uL (0.0-0.16); EOSINOPHILS 3.6 %; EOSINOPHILS ABSOLUTE 0.48 10/3/uL (0.0-0.53); HEMATOCRIT 30.2 % (36.0-48.0); HEMOGLOBIN 9.3 g/dL (12.0-16.0); IMMATURE GRANULOCYTES 0.3 %; IMMATURE GRANULOCYTES ABSOLUTE 0.04 10/3/uL (0.0-0.11); LYMPHOCYTES 17.6 %; LYMPHOCYTES ABSOLUTE 2.34 10/3/uL (0.67-4.30); MANUAL DIFF NO %; MEAN CORPUS HGB CONC 30.8 g/dL (32.0-36.0); MEAN CORPUSCULAR HEMOGLOB 29.7 pg (26.0-34.0); MEAN CORPUSCULAR VOLUME 96.5 fL (80-100); MEAN PLATELET VOLUME 9.4 fL (9.2-13.0); MONOCYTES 10.7 %; MONOCYTES ABSOLUTE 1.43 10/3/uL (0.21-1.20); NEUTROPHILS 67.6 %; NEUTROPHILS ABSOLUTE 8.99 10/3/uL (2.02-8.40); PLATELET COUNT 215 10/3/uL (150-400); RBC DISTRIBUTION WIDTH 13.7 % (12.0-16.0); RED CELL COUNT 3.13 10/6/uL (4.0-5.6); WHITE BLOOD CELLS 13.3 10/3/uL (4.5-10.5)
[2017-01-17 05:41] LABS: BUN (BLOOD UREA NITROGEN) 10 MG/DL (6-23); CALCIUM, SERUM 8.2 MG/DL (8.5-10.4); CHLORIDE, SERUM 106 MMOL/L (96-112); CO2 (CARBON DIOXIDE) 25 MMOL/L (24-34); CREATININE 0.79 MG/DL (0.55-1.02); GFR AFRICAN AMERICAN 92 ML/MIN (>=60); GFR NON AFRICAN AMERICAN 80 ML/MIN (>=60); GLUCOSE, SERUM 92 MG/DL (60-99); SODIUM, SERUM 142 MMOL/L (135-148)
[2017-01-17 07:20] LABS: BASOPHILS 0.2 %; BASOPHILS ABSOLUTE 0.02 10/3/uL (0.0-0.16); EOSINOPHILS 4.9 %; EOSINOPHILS ABSOLUTE 0.44 10/3/uL (0.0-0.53); HEMATOCRIT 32.8 % (36.0-48.0); HEMOGLOBIN 9.9 g/dL (12.0-16.0); IMMATURE GRANULOCYTES 0.1 %; IMMATURE GRANULOCYTES ABSOLUTE 0.01 10/3/uL (0.0-0.11); LYMPHOCYTES 22.6 %; LYMPHOCYTES ABSOLUTE 2.03 10/3/uL (0.67-4.30); MEAN CORPUS HGB CONC 30.2 g/dL (32.0-36.0); MEAN CORPUSCULAR HEMOGLOB 29.1 pg (26.0-34.0); MEAN CORPUSCULAR VOLUME 96.5 fL (80-100); MEAN PLATELET VOLUME 10.2 fL (9.2-13.0); MONOCYTES 6.2 %; MONOCYTES ABSOLUTE 0.56 10/3/uL (0.21-1.20); NEUTROPHILS ABSOLUTE 5.91 10/3/uL (2.02-8.40); PLATELET COUNT 267 10/3/uL (150-400); RBC DISTRIBUTION WIDTH 13.9 % (12.0-16.0)
[2017-01-17 07:21] LABS: MANUAL DIFF NO %
[2017-01-17] MEDS ORDERED: FLEX PO (12:03)
[2017-01-17] MEDS ORDERED: CIP5 PO (12:03)
== END 2017-01-17 14:43 | disposition home or self-care (01) | DRG 857 ==
LOC: 3SO 18:05
PROVIDERS: Hospitalist; Nurse Practitioner Family; Orthopaedic Surgery
PROC: 0JB70ZZ Excision of Back Subcutaneous Tissue and Fascia, Open Approach (ICD-10-PCS; principal; 2017-01-13)
PROC: 0JD70ZZ Extraction of Back Subcutaneous Tissue and Fascia, Open Approach (ICD-10-PCS; 2017-01-16)
DX: T81.4XXA Infection following a procedure, initial encounter (principal); T81.31XA Disruption of external operation (surgical) wound, not elsewhere classified, initial encounter; G70.00 Myasthenia gravis without (acute) exacerbation; I10 Essential (primary) hypertension; J45.909 Unspecified asthma, uncomplicated
CPT/HCPCS: 71010; 80048; 80053; 81001; 82962; 83036; 83735; 84100; 85025; 85610; 85652; 86140; 87015; 87070; 87075; 87077; 87102; 87116; 87186; 87205; 87641; 88305; 93005; 97116-GP; 97161-GP; 97164-GP; A9270-GY; C1713; G8978-CJ-GP; G8978-CK-GP; G8979-CI-GP; G8979-CJ-GP; G8980-CJ-GP; J0690; J0692; J1170; J1720; J2250; J2270; J2370; J2405; J3010; J3370

== ENCOUNTER 2017-02-03 12:17 | Inpatient (IN) | payer MEDICARE, OTHER ==
--- NOTE | ~2017-02-03 | OP ---
Record Of Operation [facility] [address] [place]. [address] NAME: JOHN QUINTERO : 53 STATUS : ADM IN PAT#: [id number] AGE: 62 ADM/REG DATE : 02/03/17 MR#: [id number] REPORT SERV DATE: 02/04/17 DICTATED BY: JONEL RICHARDSON DATE: 02/04/17 REPORT STATUS : Draft TRANSCRIBED BY: MODL DATE: 02/04/17 DATE OF PROCEDURE: 02/04/2017 PREOPERATIVE DIAGNOSES: Postoperative wound dehiscence and possible superficial infection with history of previous superficial infection. POSTOPERATIVE DIAGNOSES: Postoperative wound dehiscence and possible superficial infection with history of previous superficial infection. PROCEDURE: Irrigation and debridement (washout lumbar spine wound with debridement of skin edges and subcutaneous tissue with a knife), application of wound VAC sponge. SURGEON: Jonel Richardson DO ANESTHESIA: General. ESTIMATED BLOOD LOSS: 25 mL. COMPLICATIONS: None. INDICATIONS: The patient is a pleasant 62-year-old who has had a previous lumbar fusion and unfortunately developed wound dehiscence, had undergone VAC placement previously and was able to have the skin close, but unfortunately she presented to the office with repeat dehiscence. Her protein levels are low on labs and she is minimally ambulating due to her body habitus, is having trouble with the healing, as a result, I discussed the possibility of a chronic back healing by secondary intention to avoid additional surgeries as the skin edges do not appear to be healing well primarily and she agreed. DESCRIPTION OF PROCEDURE: Identified the patient in the holding area. Consent was obtained. Went to the operating room. Underwent general anesthesia with endotracheal intubation. Prepped and draped in the usual sterile fashion. Operative safety pause was performed, and then we proceeded. A midline longitudinal incision was made over the previous incision. The skin edges were debrided with a knife. There was no evidence of deep involvement or superficial. 3 liters of pulsatile irrigation followed by a liter of Betadine and sterile saline were used to clean the wound. Prior to that, cultures were taken and sent for pathologic analysis. Several deep sutures were performed with #1 PDS suture followed by placement of VAC sponge, which had a good seal. The patient was awakened and extubated and taken to the recovery room in stable condition. OPERATIVE FINDINGS: Postoperative wound dehiscence, possible superficial infection. FUENTES/HIEN Jonel Stanley Record Of Operation [address] [address] NAME: JOHN QUINTERO : 53 STATUS : ADM IN PAT#: [id number] AGE: 62 ADM/REG DATE : 02/03/17 MR#: [id number] REPORT SERV DATE: 02/04/17 DICTATED BY: JONEL RICHARDSON DATE: 02/04/17 REPORT STATUS : Draft TRANSCRIBED BY: MODL DATE: 02/04/17 DO Debra / [id number] CC: DO Marc Greer M.D.
--- NOTE | ~2017-02-03 | OP ---
Record Of Operation [facility] [address] [facility] [place]. [address] NAME: JOHN QUINTERO : 53 STATUS : ADM IN [facility]#: [id number] AGE: 62 ADM/REG DATE : 02/03/17 MR#: [id number] REPORT SERV DATE: 02/06/17 DICTATED BY: JONEL TINOCO DATE: 02/06/17 REPORT STATUS : Draft TRANSCRIBED BY: MODL DATE: 02/06/17 DATE OF PROCEDURE: 02/06/2017 PREOPERATIVE DIAGNOSIS: Postoperative wound infection with failed seal on the VAC sponge. POSTOPERATIVE DIAGNOSIS: Postoperative wound infection with failed seal on the VAC sponge. PROCEDURE: VAC sponge exchange under conscious sedation. ANESTHESIA: Conscious sedation. ESTIMATED BLOOD LOSS: None. INDICATIONS: The patient is a 62-year-old who had a previous VAC sponge on Friday. We are planning on healing by secondary intention with a chronic VAC sponge with wound management, unfortunately the patient's INR was 4.4. She had significant bleeding from a spot on her wound unable to obtain a good seal for the VAC sponge, and as a result, she was brought back to the OR. After discussion of risks and benefits, we went to the operating room. PROCEDURE IN DETAIL: Identified the patient in the holding area. Consent was obtained. Went to the operating room. Underwent conscious sedation. A time-out was performed then we proceeded. Previously placed sponges were removed. There was an area of 1 small superficial vessel bleeding and it was cauterized with a Bovie. VAC sponge was then reapplied and found to have a good seal. The patient was returned to the recovery room in stable condition. OPERATIVE FINDINGS: A small superficial bleeder with failure to maintain a good seal on the VAC sponge, and the VAC was changed with a good seal. The patient was given 2 units of blood and H and H will be re-checked in the recovery room and again tomorrow to see if additional blood is needed. FUENTES/HIEN Jonel Tinoco DO / [id number] CC: DO Marc Greer M.D.
--- NOTE | ~2017-02-03 | HP ---
History And Physical [address] [place]. [address] NAME: JOHN QUINTERO : 53 STATUS : ADM IN [facility]#: [id number] AGE: 62 ADM/REG DATE : 02/03/17 MR#: [id number] REPORT SERV DATE: 02/04/17 DICTATED BY: JONEL TINOCO DATE: 02/04/17 REPORT STATUS : Draft TRANSCRIBED BY: MODTeja DATE: 02/04/17 DATE OF ADMISSION: 02/03/2017 CHIEF COMPLAINT: Postoperative wound dehiscence, possible infection. HISTORY OF PRESENT ILLNESS: The patient is a pleasant 62-year-old who had undergone a previous L4-S1 laminectomy and fusion by me on 12/14/2016. She had an initial wound dehiscence and was brought back to the operating room for irrigation and debridement, VAC sponge placement, and subsequently brought back again for wound closure. She was initially doing well, but has started to have some additional breakdown in the wound. Unfortunately the patient is morbidly obese and has a poor diet. Her albumin level is 2.6 and she states that she is not eating well. Given the continued problems with the wound, I have recommended admission, repeat irrigation and debridement, and placement of VAC sponge, given the fact that we continued to have trouble with her skin healing with low protein levels as well. We will consider long-term VAC sponge and consult the wound care center for home VAC sponge changes and allow the wound to heal by secondary intention. We will also obtain a consultation from dietary and nutrition to help maximize the protein levels for her. REVIEW OF SYSTEMS: She denies chest pain, shortness of breath, and bowel or bladder changes. HOME MEDICATIONS: Include Percocet and Flexeril and Coumadin. ALLERGIES: DENIED. PAST MEDICAL HISTORY: Myasthenia gravis and hypertension. FAMILY HISTORY: Noncontributory. PHYSICAL EXAMINATION: GENERAL: The patient is morbidly obese, in no acute distress. Pain is controlled. PSYCHIATRIC: She is alert and oriented x3. Normal mood and affect. Gait is antalgic. VASCULAR: No extremity swelling. SPINE: Postoperative wound dehiscence with history of a gram negative eleazar superficial infection, no evidence of deep infection. NEUROLOGIC: Strength in lower extremities remains intact. No focal deficits. HEART: Regular rate and rhythm. LUNGS: Clear to auscultation. ABDOMEN: Soft, nontender, and nondistended with good bowel sounds. BREASTS AND RECTAL: Both deferred. IMAGING: No new imaging was obtained today. LABS: CRP is 26.5. Albumin 2.6. White blood cell 8.7, hemoglobin 10.6, hematocrit 34.4, platelets 279, and ESR is 83. History And Physical [address] [address] NAME: JOHN QUINTERO : 53 STATUS : ADM IN [facility]#: [id number] AGE: 62 ADM/REG DATE : 02/03/17 MR#: [id number] REPORT SERV DATE: 02/04/17 DICTATED BY: JONEL TINOCO DATE: 02/04/17 REPORT STATUS : Draft TRANSCRIBED BY: HIEN DATE: 02/04/17 ASSESSMENT: Postoperative wound dehiscence with history of superficial gram-negative eleazar infection. PLAN: The patient will be admitted and taken to the operating room for irrigation and debridement later on 02/04/2017 with plans for VAC sponge placement and possible chronic VAC sponge for healing with secondary intention. FUENTES/IHEN Jonel Tinoco DO / [id number] CC: DO Marc Greer M.D.
--- NOTE | ~2017-02-03 | DS ---
Discharge Summary [facility] [address] [place]. [address] NAME: JOHN QUINTERO : 53 STATUS : DIS IN PAT#: [id number] AGE: 62 ADM/REG DATE : 02/03/17 MR#: [id number] REPORT SERV DATE: 02/20/17 DICTATED BY: JONEL RICHARDSON DATE: 02/19/17 REPORT STATUS : Draft TRANSCRIBED BY: HIEN DATE: 02/19/17 Data Collection from hospitalization DISCHARGE DIAGNOSES: 1. Postoperative wound dehiscence and possible superficial infection with history of previous superficial infection. 2. Hypertension. 3. Myasthenia gravis. CONSULTATIONS: 1. Ricardo Rajan M.D. 2. Clarke Pruitt M.D. PROCEDURES: 1. Irrigation and debridement (washout lumbar spine wound with debridement of skin edges and subcutaneous tissue with a knife), application of wound VAC sponge on 02/04/2017. 2. VAC sponge exchanged under conscious sedation, 02/06/2017. DISCHARGE MEDICATIONS: Tenormin 150 mg daily, Prevalite 4 g three times a day, Cipro 500 mg every 12 hours, Flexeril 10 mg every 8 hours as needed, Neurontin 600 mg three times a day, IVIG 1 dose as instructed, Imodium 2 mg three times a day, CellCept 1000 mg twice a day as instructed, Percocet 5/325 one to two tablets every four hours as needed, Deltasone 10 mg every morning, Mestinon 60 mg three times a day, Xopenex 2 puffs via inhaler every three hours as needed, Coumadin 4 mg at bedtime. CONDITION ON DISCHARGE: Stable. DISPOSITION: The patient was discharged home to be followed by home health care on a regular diet with activities as instructed. She will follow up with me, 02/19/2017, and with Dr. Ricardo Rajan, 03/04/2017. HOSPITAL COURSE: This is a 62-year-old female who had undergone a previous lumbar fusion and unfortunately developed wound dehiscence. She had undergone VAC placement previously and was able to have the skin closed but unfortunately she presented to the office with repeat dehiscence. Protein levels were low on labs and she was minimally ambulating due to her body habitus. She did have trouble with the healing and we discussed the possibility of a chronic back healing by secondary intention to avoid additional surgeries as the skin edges do not appear to be healing well primarily and she agreed. She was admitted to the hospital at this time for further evaluation and treatment. Upon admission, she was taken to the operating room where she underwent the above-mentioned procedure. She tolerated this well. There were no complications. Following this, the wound VAC was checked for blockage. She was seen by Dr. Ricardo Rajan. He was going to follow up her operative cultures. She was going to remain on vancomycin and cefepime at this time. Her T-max was 99.4. The following day, her INR level was 4.4. She had significant bleeding from a spot on her wound and it was unable to obtain a good seal for the VAC sponge. As a result, she was taken back to the operating room on the where she underwent the above-mentioned procedure. She tolerated this well and there were no Discharge Summary [address] [address] NAME: JOHN QUINTERO : 53 STATUS : DIS IN [facility]#: [id number] AGE: 62 ADM/REG DATE : 02/03/17 MR#: [id number] REPORT SERV DATE: 02/20/17 DICTATED BY: JONEL RICHARDSON DATE: 02/19/17 REPORT STATUS : Draft TRANSCRIBED BY: HIEN DATE: 02/19/17 complications. She had also been seen by Dr. Clarke Pruitt. The patient said she was not a diabetic and takes no diabetes medication. She does not check her blood glucose levels at home. Hemoglobin A1c was 6.2. On 01/13/2017, she was currently on level 2 sliding scale insulin. This would be adjusted. IV antibiotics were continued. She was evaluated by Physical Therapy. The patient began to refuse insulin saying that it made her sick. So nurses report that she pulled her IV out as well as the Shepherd catheter. Transfusion was in progress. Creatinine level was 1.31. On 02/08/2017, her lungs were clear. Her abdomen was soft and nontender. She had no edema. Scheduled insulin was stopped as well as Accu-Cheks. INR level was 1.5. Ancef and Cipro were continued. She had been found to have MSSA. Her pain was controlled. Discharge planning was performed. On 02/10/2017, she was feeling better. She was afebrile. Antibiotics were continued. INR level was 1.5. A PICC line was inserted. IV antibiotics will be continued. Discharge instructions were given. Due to her improved and stable condition, she was discharged home to be followed by home health care with the above-stated instructions. Information collected by: Mary Sheridan I submit the above information as my discharge summary. TIERRA/HIEN Jonel Richardson DO / [id number] CC: DO Marc Greer M.D. Mark Anderson, M.D.
[~2017-02-03 12:17] MED LIST changes: +CIP5 PO; +IVIGLIQ IV; +K500 PO; +KDUR20 PO; +PREVALITE4 G1 PO; +XOPENEX HFA INHALER INH
[2017-02-03 16:36] LABS: BASOPHILS 0.2 %; BASOPHILS ABSOLUTE 0.02 10/3/uL (0.0-0.16); EOSINOPHILS 4.1 %; EOSINOPHILS ABSOLUTE 0.36 10/3/uL (0.0-0.53); HEMATOCRIT 34.4 % (36.0-48.0); HEMOGLOBIN 10.6 g/dL (12.0-16.0); IMMATURE GRANULOCYTES 0.2 %; IMMATURE GRANULOCYTES ABSOLUTE 0.02 10/3/uL (0.0-0.11); LYMPHOCYTES 20.5 %; LYMPHOCYTES ABSOLUTE 1.78 10/3/uL (0.67-4.30); MEAN CORPUS HGB CONC 30.8 g/dL (32.0-36.0); MEAN CORPUSCULAR HEMOGLOB 28.4 pg (26.0-34.0); MEAN PLATELET VOLUME 10.4 fL (9.2-13.0); MONOCYTES 9.7 %; MONOCYTES ABSOLUTE 0.84 10/3/uL (0.21-1.20); NEUTROPHILS 65.3 %; NEUTROPHILS ABSOLUTE 5.67 10/3/uL (2.02-8.40); PLATELET COUNT 279 10/3/uL (150-400); RBC DISTRIBUTION WIDTH 14.5 % (12.0-16.0); RED CELL COUNT 3.73 10/6/uL (4.0-5.6); WHITE BLOOD CELLS 8.7 10/3/uL (4.5-10.5)
[2017-02-03 16:37] LABS: MANUAL DIFF NO %; MEAN CORPUSCULAR VOLUME 92.2 fL (80-100)
[2017-02-03 16:55] LABS: ALBUMIN 2.6 G/DL (3.5-5.0); BUN (BLOOD UREA NITROGEN) 14 MG/DL (6-23); CHLORIDE, SERUM 109 MMOL/L (96-112); GFR AFRICAN AMERICAN 46 ML/MIN (>=60); GFR NON AFRICAN AMERICAN 40 ML/MIN (>=60); GLUCOSE, SERUM 122 MG/DL (60-99); SGPT(ALT) 16 U/L (5-65); SODIUM, SERUM 136 MMOL/L (135-148); TOTAL BILIRUBIN 0.5 MG/DL (0-1.2); TOTAL PROTEIN 8.4 G/DL (6.0-8.5)
[2017-02-03 16:57] LABS: A/G RATIO 0.4 (0.7-1.9); ALKALINE PHOSPHATASE 271 U/L (45-117); CALCIUM, SERUM 9.4 MG/DL (8.5-10.4); CO2 (CARBON DIOXIDE) 14 MMOL/L (24-34); GLOBULIN 5.8 G/DL (2.5-4.1); POTASSIUM, SERUM 4.4 MMOL/L (3.5-5.3)
[2017-02-03 17:01] LABS: C-REACTIVE PROTEIN 26.5 MG/L (<8.0); SGOT(AST) 30 U/L (5-40)
[2017-02-03 17:23] LABS: SED RATE 83 MM/HR (0-20)
[2017-02-04 08:36] LABS: INTERNATIONAL NORMAL RATI 3.9 UNITS (-)
[2017-02-04 08:37] LABS: PROTIME (NOT ORD) 38.1 SEC (12.0-14.5)
[2017-02-04 16:57] LABS: BASOPHILS 0.1 %; BASOPHILS ABSOLUTE 0.01 10/3/uL (0.0-0.16); EOSINOPHILS 0.3 %; EOSINOPHILS ABSOLUTE 0.03 10/3/uL (0.0-0.53); HEMOGLOBIN 10.3 g/dL (12.0-16.0); IMMATURE GRANULOCYTES 0.4 %; IMMATURE GRANULOCYTES ABSOLUTE 0.04 10/3/uL (0.0-0.11); LYMPHOCYTES 11.6 %; LYMPHOCYTES ABSOLUTE 1.08 10/3/uL (0.67-4.30); MEAN CORPUS HGB CONC 30.3 g/dL (32.0-36.0); MEAN CORPUSCULAR HEMOGLOB 28.2 pg (26.0-34.0); MEAN CORPUSCULAR VOLUME 93.2 fL (80-100); MEAN PLATELET VOLUME 9.9 fL (9.2-13.0); MONOCYTES ABSOLUTE 0.09 10/3/uL (0.21-1.20); NEUTROPHILS 86.6 %; NEUTROPHILS ABSOLUTE 8.08 10/3/uL (2.02-8.40); PLATELET COUNT 291 10/3/uL (150-400); RBC DISTRIBUTION WIDTH 14.8 % (12.0-16.0); RED CELL COUNT 3.65 10/6/uL (4.0-5.6); WHITE BLOOD CELLS 9.3 10/3/uL (4.5-10.5)
[2017-02-04 16:58] LABS: MANUAL DIFF NO %
[2017-02-04 17:06] LABS: BUN (BLOOD UREA NITROGEN) 16 MG/DL (6-23); CALCIUM, SERUM 8.5 MG/DL (8.5-10.4); CHLORIDE, SERUM 109 MMOL/L (96-112); CREATININE 1.07 MG/DL (0.55-1.02); GFR AFRICAN AMERICAN 64 ML/MIN (>=60); GFR NON AFRICAN AMERICAN 55 ML/MIN (>=60); POTASSIUM, SERUM 4.3 MMOL/L (3.5-5.3); SODIUM, SERUM 142 MMOL/L (135-148)
[2017-02-04 17:07] LABS: CO2 (CARBON DIOXIDE) 24 MMOL/L (24-34); GLUCOSE, SERUM 169 MG/DL (60-99)
[2017-02-05 05:04] LABS: BASOPHILS 0.2 %; BASOPHILS ABSOLUTE 0.01 10/3/uL (0.0-0.16); EOSINOPHILS 0 %; HEMATOCRIT 30.2 % (36.0-48.0); HEMOGLOBIN 9.3 g/dL (12.0-16.0); IMMATURE GRANULOCYTES 0.4 %; IMMATURE GRANULOCYTES ABSOLUTE 0.02 10/3/uL (0.0-0.11); LYMPHOCYTES 11.3 %; LYMPHOCYTES ABSOLUTE 0.61 10/3/uL (0.67-4.30); MANUAL DIFF NO %; MEAN CORPUS HGB CONC 30.8 g/dL (32.0-36.0); MEAN CORPUSCULAR HEMOGLOB 28.4 pg (26.0-34.0); MEAN CORPUSCULAR VOLUME 92.1 fL (80-100); MEAN PLATELET VOLUME 10.4 fL (9.2-13.0); MONOCYTES ABSOLUTE 0.11 10/3/uL (0.21-1.20); NEUTROPHILS 86.1 %; NEUTROPHILS ABSOLUTE 4.67 10/3/uL (2.02-8.40); PLATELET COUNT 302 10/3/uL (150-400); RBC DISTRIBUTION WIDTH 14.6 % (12.0-16.0); RED CELL COUNT 3.28 10/6/uL (4.0-5.6); WHITE BLOOD CELLS 5.4 10/3/uL (4.5-10.5)
[2017-02-05 05:18] LABS: BUN (BLOOD UREA NITROGEN) 16 MG/DL (6-23); CALCIUM, SERUM 8.4 MG/DL (8.5-10.4); CHLORIDE, SERUM 108 MMOL/L (96-112); CO2 (CARBON DIOXIDE) 24 MMOL/L (24-34); CREATININE 0.87 MG/DL (0.55-1.02); GFR AFRICAN AMERICAN 82 ML/MIN (>=60); GFR NON AFRICAN AMERICAN 71 ML/MIN (>=60); GLUCOSE, SERUM 257 MG/DL (60-99); POTASSIUM, SERUM 4.5 MMOL/L (3.5-5.3); SODIUM, SERUM 139 MMOL/L (135-148)
[2017-02-05 15:04] LABS: INTERNATIONAL NORMAL RATI 4.2 UNITS (-); PROTIME (NOT ORD) 40.3 SEC (12.0-14.5)
[2017-02-06 08:17] LABS: BUN (BLOOD UREA NITROGEN) 27 MG/DL (6-23); CALCIUM, SERUM 8.1 MG/DL (8.5-10.4); CHLORIDE, SERUM 107 MMOL/L (96-112); CO2 (CARBON DIOXIDE) 22 MMOL/L (24-34); CREATININE 1.28 MG/DL (0.55-1.02); GFR AFRICAN AMERICAN 52 ML/MIN (>=60); GFR NON AFRICAN AMERICAN 44 ML/MIN (>=60); GLUCOSE, SERUM 235 MG/DL (60-99); INTERNATIONAL NORMAL RATI 4.4 UNITS (-); SODIUM, SERUM 137 MMOL/L (135-148)
[2017-02-06 10:43] LABS: BASOPHILS 0.1 %; BASOPHILS ABSOLUTE 0.01 10/3/uL (0.0-0.16); EOSINOPHILS 0.1 %; EOSINOPHILS ABSOLUTE 0.01 10/3/uL (0.0-0.53); IMMATURE GRANULOCYTES 0.5 %; IMMATURE GRANULOCYTES ABSOLUTE 0.08 10/3/uL (0.0-0.11); LYMPHOCYTES 11.2 %; LYMPHOCYTES ABSOLUTE 1.82 10/3/uL (0.67-4.30); MEAN CORPUS HGB CONC 31.4 g/dL (32.0-36.0); MEAN CORPUSCULAR HEMOGLOB 28.2 pg (26.0-34.0); MEAN CORPUSCULAR VOLUME 89.9 fL (80-100); MONOCYTES 7.5 %; MONOCYTES ABSOLUTE 1.22 10/3/uL (0.21-1.20); NEUTROPHILS 80.6 %; NEUTROPHILS ABSOLUTE 13.13 10/3/uL (2.02-8.40); PLATELET COUNT 349 10/3/uL (150-400); RBC DISTRIBUTION WIDTH 14.8 % (12.0-16.0)
[2017-02-06 10:44] LABS: RED CELL COUNT 1.88 10/6/uL (4.0-5.6); WHITE BLOOD CELLS 16.3 10/3/uL (4.5-10.5)
[2017-02-06 10:45] LABS: HEMATOCRIT 16.9 % (36.0-48.0); HEMOGLOBIN 5.3 g/dL (12.0-16.0); MANUAL DIFF NO %
[2017-02-06 16:26] LABS: BASOPHILS 0 %; EOSINOPHILS 0 %; IMMATURE GRANULOCYTES 0.6 %; LYMPHOCYTES 9.2 %; MEAN CORPUS HGB CONC 32.4 g/dL (32.0-36.0); MEAN CORPUSCULAR HEMOGLOB 28.7 pg (26.0-34.0); MEAN CORPUSCULAR VOLUME 88.8 fL (80-100); MEAN PLATELET VOLUME 9.9 fL (9.2-13.0); MONOCYTES 8.1 %; MONOCYTES ABSOLUTE 1.41 10/3/uL (0.21-1.20); NEUTROPHILS 82.1 %; NEUTROPHILS ABSOLUTE 14.23 10/3/uL (2.02-8.40); PLATELET COUNT 256 10/3/uL (150-400); RBC DISTRIBUTION WIDTH 14.8 % (12.0-16.0); WHITE BLOOD CELLS 17.3 10/3/uL (4.5-10.5)
[2017-02-06 16:27] LABS: HEMATOCRIT 23.8 % (36.0-48.0); HEMOGLOBIN 7.7 g/dL (12.0-16.0); MANUAL DIFF NO %; RED CELL COUNT 2.68 10/6/uL (4.0-5.6)
[2017-02-06 22:05] LABS: CALCIUM, SERUM 7.7 MG/DL (8.5-10.4); CHLORIDE, SERUM 110 MMOL/L (96-112); CREATININE 1.43 MG/DL (0.55-1.02); GFR AFRICAN AMERICAN 45 ML/MIN (>=60); GFR NON AFRICAN AMERICAN 39 ML/MIN (>=60); GLUCOSE, SERUM 215 MG/DL (60-99); SODIUM, SERUM 141 MMOL/L (135-148)
[2017-02-06 22:06] LABS: BUN (BLOOD UREA NITROGEN) 33 MG/DL (6-23); CO2 (CARBON DIOXIDE) 17 MMOL/L (24-34); POTASSIUM, SERUM 5.5 MMOL/L (3.5-5.3)
[2017-02-07 01:46] LABS: BASOPHILS 0.1 %; BASOPHILS ABSOLUTE 0.01 10/3/uL (0.0-0.16); EOSINOPHILS 0.1 %; EOSINOPHILS ABSOLUTE 0.01 10/3/uL (0.0-0.53); HEMATOCRIT 21.6 % (36.0-48.0); HEMOGLOBIN 7.1 g/dL (12.0-16.0); IMMATURE GRANULOCYTES 0.4 %; IMMATURE GRANULOCYTES ABSOLUTE 0.08 10/3/uL (0.0-0.11); LYMPHOCYTES 16.1 %; LYMPHOCYTES ABSOLUTE 2.93 10/3/uL (0.67-4.30); MANUAL DIFF NO %; MEAN CORPUS HGB CONC 32.9 g/dL (32.0-36.0); MEAN CORPUSCULAR HEMOGLOB 28.6 pg (26.0-34.0); MEAN CORPUSCULAR VOLUME 87.1 fL (80-100); MEAN PLATELET VOLUME 9.7 fL (9.2-13.0); MONOCYTES ABSOLUTE 1.81 10/3/uL (0.21-1.20); NEUTROPHILS 73.3 %; NEUTROPHILS ABSOLUTE 13.33 10/3/uL (2.02-8.40); PLATELET COUNT 290 10/3/uL (150-400); RBC DISTRIBUTION WIDTH 15.6 % (12.0-16.0); RED CELL COUNT 2.48 10/6/uL (4.0-5.6); WHITE BLOOD CELLS 18.2 10/3/uL (4.5-10.5)
[2017-02-07 01:56] LABS: INTERNATIONAL NORMAL RATI 3.3 UNITS (-); PROTIME (NOT ORD) 33.4 SEC (12.0-14.5)
[2017-02-07 02:00] LABS: BUN (BLOOD UREA NITROGEN) 34 MG/DL (6-23); CALCIUM, SERUM 7.8 MG/DL (8.5-10.4); CHLORIDE, SERUM 106 MMOL/L (96-112); CO2 (CARBON DIOXIDE) 23 MMOL/L (24-34); CREATININE 1.31 MG/DL (0.55-1.02); GFR AFRICAN AMERICAN 50 ML/MIN (>=60); GFR NON AFRICAN AMERICAN 43 ML/MIN (>=60); GLUCOSE, SERUM 211 MG/DL (60-99); POTASSIUM, SERUM 4.5 MMOL/L (3.5-5.3); SODIUM, SERUM 137 MMOL/L (135-148); VANCOMYCIN TROUGH 25.5 MCG/ML (10.0-20.0)
[2017-02-08 07:16] LABS: HEMOGLOBIN 7.8 g/dL (12.0-16.0); MEAN CORPUSCULAR HEMOGLOB 27.7 pg (26.0-34.0); MEAN PLATELET VOLUME 9.9 fL (9.2-13.0); PLATELET COUNT 213 10/3/uL (150-400); RBC DISTRIBUTION WIDTH 16.3 % (12.0-16.0); RED CELL COUNT 2.82 10/6/uL (4.0-5.6)
[2017-02-08 07:20] LABS: HEMATOCRIT 25.5 % (36.0-48.0); MANUAL DIFF YES %; MEAN CORPUS HGB CONC 30.6 g/dL (32.0-36.0); MEAN CORPUSCULAR VOLUME 90.4 fL (80-100); WHITE BLOOD CELLS 9.2 10/3/uL (4.5-10.5)
[2017-02-08 08:03] LABS: BAND NEUTROPHILS 6 %; EOSINOPHILS 4 %; EOSINOPHILS ABSOLUTE (CALC) 0.37 10/3/uL (0.0-0.53); IMMATURE GRANS ABSOLUTE (CALC) 0.09 10/3/uL (0.0-0.11); LYMPHOCYTES 24 %; LYMPHOCYTES ABSOLUTE (CALC) 2.21 10/3/uL (0.67-4.30); METAMYELOCYTES 1 %; MONOCYTES 6 %; MONOCYTES ABSOLUTE (CALC) 0.55 10/3/uL (0.21-1.20); NEUTROPHILS ABSOLUTE (CALC) 5.98 10/3/uL (2.02-8.40); PLATELET ESTIMATE ADQ (ADEQUATE); POLYCHROMASIA 1+ (2-5/OIF) (0-1/OIF); SEGMENTED NEUTROPHIL (0) 59 %; TARGET CELLS OCC (1-2/OIF) (0-1/OIF); TEARDROP SHAPED RBCS OCC (0-2/OIF); TOTAL NUCLEATED CELLS 100
[2017-02-08 08:04] LABS: HELMET CELLS OCC (0-2/OIF); TOXIC GRANULATION SLT
[2017-02-08 08:05] LABS: HYPOCHROMIA 1+ (3-10/OIF) (0-2/OIF)
[2017-02-09 07:13] LABS: BASOPHILS 0.1 %; BASOPHILS ABSOLUTE 0.01 10/3/uL (0.0-0.16); EOSINOPHILS 5.1 %; EOSINOPHILS ABSOLUTE 0.44 10/3/uL (0.0-0.53); HEMATOCRIT 30.9 % (36.0-48.0); HEMOGLOBIN 10.2 g/dL (12.0-16.0); IMMATURE GRANULOCYTES 0.5 %; IMMATURE GRANULOCYTES ABSOLUTE 0.04 10/3/uL (0.0-0.11); LYMPHOCYTES 19.2 %; LYMPHOCYTES ABSOLUTE 1.66 10/3/uL (0.67-4.30); MANUAL DIFF NO %; MEAN CORPUSCULAR VOLUME 87.8 fL (80-100); MEAN PLATELET VOLUME 9.5 fL (9.2-13.0); MONOCYTES 9.3 %; NEUTROPHILS 65.8 %; NEUTROPHILS ABSOLUTE 5.68 10/3/uL (2.02-8.40); PLATELET COUNT 233 10/3/uL (150-400); RBC DISTRIBUTION WIDTH 15.5 % (12.0-16.0); RED CELL COUNT 3.52 10/6/uL (4.0-5.6); WHITE BLOOD CELLS 8.6 10/3/uL (4.5-10.5)
[2017-02-09 07:19] LABS: INTERNATIONAL NORMAL RATI 1.5 UNITS (-)
[2017-02-09 07:20] LABS: PROTIME (NOT ORD) 17.5 SEC (12.0-14.5)
[2017-02-10 09:20] LABS: INTERNATIONAL NORMAL RATI 1.2 UNITS (-)
[2017-02-10] MEDS ORDERED: CIP5 PO (10:38)
== END 2017-02-10 17:15 | disposition home health service (06) | DRG 902 ==
LOC: 3SO 12:17
PROVIDERS: Internal Medicine; Internal Medicine Infectious Disease; Nurse Practitioner; Orthopaedic Surgery
PROC: 0JB70ZZ Excision of Back Subcutaneous Tissue and Fascia, Open Approach (ICD-10-PCS; principal; 2017-02-03)
PROC: 30233N1 Transfusion of Nonautologous Red Blood Cells into Peripheral Vein, Percutaneous Approach (ICD-10-PCS; 2017-02-06)
PROC: 2W05X6Z Change Pressure Dressing on Back (ICD-10-PCS; 2017-02-06 10:30)
PROC: 02HV33Z Insertion of Infusion Device into Superior Vena Cava, Percutaneous Approach (ICD-10-PCS; 2017-02-10)
PROC: 4A02X4A Measurement of Cardiac Electrical Activity, Guidance, External Approach (ICD-10-PCS; 2017-02-10)
DX: T81.31XA Disruption of external operation (surgical) wound, not elsewhere classified, initial encounter (principal); D62 Acute posthemorrhagic anemia; N17.9 Acute kidney failure, unspecified; G70.00 Myasthenia gravis without (acute) exacerbation; E11.65 Type 2 diabetes mellitus with hyperglycemia; I82.5Z1 Chronic embolism and thrombosis of unspecified deep veins of right distal lower extremity
CPT/HCPCS: 36415; 36569; 71010; 80048; 80053; 80202; 82962; 83735; 85025; 85610; 85652; 86140; 86850; 86900; 86901; 86920; 87015; 87070; 87075; 87077; 87102; 87116; 87186; 87205; 93005; 97116-GP; 97161-GP; A9270-GY; C1751; G8978-CK-GP; G8979-CJ-GP; J0690; J0692; J1940; J2250; J2270; J2405; J2930; J3010; J3370; P9016

== ENCOUNTER 2017-02-12 20:05 | Emergency (ER) | payer MEDICARE, OTHER | END 2017-02-12 20:58 | disposition home or self-care (01) | LOC: ER 20:05 | DX: M79.89 Other specified soft tissue disorders (principal); J45.909 Unspecified asthma, uncomplicated; I10 Essential (primary) hypertension; Z95.9 Presence of cardiac and vascular implant and graft, unspecified; Z79.52 Long term (current) use of systemic steroids; Z79.01 Long term (current) use of anticoagulants; Z79.899 Other long term (current) drug therapy | CPT/HCPCS: 80048; 81001; 83735; 84484; 85025; 85610; 85730; 93971; 99284; J0690 ==

== ENCOUNTER 2017-02-27 13:49 | Inpatient (IN) | payer MEDICARE, OTHER ==
[2017-02-24 10:48] LABS: BASOPHILS 0.1 %; BASOPHILS ABSOLUTE 0.01 10/3/uL (0.0-0.16); EOSINOPHILS 3.1 %; EOSINOPHILS ABSOLUTE 0.31 10/3/uL (0.0-0.53); HEMOGLOBIN 9.5 g/dL (12.0-16.0); IMMATURE GRANULOCYTES 0.4 %; IMMATURE GRANULOCYTES ABSOLUTE 0.04 10/3/uL (0.0-0.11); LYMPHOCYTES 17.3 %; LYMPHOCYTES ABSOLUTE 1.72 10/3/uL (0.67-4.30); MEAN CORPUS HGB CONC 31.1 g/dL (32.0-36.0); MEAN CORPUSCULAR HEMOGLOB 27.9 pg (26.0-34.0); MEAN CORPUSCULAR VOLUME 89.4 fL (80-100); MEAN PLATELET VOLUME 10.5 fL (9.2-13.0); MONOCYTES 6.2 %; MONOCYTES ABSOLUTE 0.62 10/3/uL (0.21-1.20); NEUTROPHILS 72.9 %; NEUTROPHILS ABSOLUTE 7.26 10/3/uL (2.02-8.40); RBC DISTRIBUTION WIDTH 15.7 % (12.0-16.0); RED CELL COUNT 3.41 10/6/uL (4.0-5.6)
[2017-02-24 10:49] LABS: HEMATOCRIT 30.5 % (36.0-48.0); MANUAL DIFF NO %; PLATELET COUNT 318 10/3/uL (150-400)
[2017-02-24 11:01] LABS: BUN (BLOOD UREA NITROGEN) 9 MG/DL (6-23); CALCIUM, SERUM 8.2 MG/DL (8.5-10.4); CHLORIDE, SERUM 108 MMOL/L (96-112); CO2 (CARBON DIOXIDE) 29 MMOL/L (24-34); CREATININE 0.66 MG/DL (0.55-1.02); GFR AFRICAN AMERICAN 109 ML/MIN (>=60); GFR NON AFRICAN AMERICAN 94 ML/MIN (>=60); GLUCOSE, SERUM 95 MG/DL (60-99); POTASSIUM, SERUM 3.2 MMOL/L (3.5-5.3); SODIUM, SERUM 145 MMOL/L (135-148)
--- NOTE | ~2017-02-27 | HP ---
History And Physical [place] [id number] [facility] [place]. [address] NAME: JOHN QUINTERO : [birth year] STATUS : ADM IN [facility]#: [id number] AGE: 62 ADM/REG DATE : 02/27/17 MR#: [id number] REPORT SERV DATE: 02/27/17 DICTATED BY: VIVIAN BRASHER DATE: 02/27/17 REPORT STATUS : Draft TRANSCRIBED BY: MODL DATE: 02/27/17 DATE OF ADMISSION: 02/27/2017 REASON FOR ADMISSION: Direct admission from Dr. Marc Mark' office for hypoxia. ORTHOPEDIST: Jonel Richardson DO TAX DIRECTOR: Misha Jones M.D. INFECTIOUS DISEASE: Ricardo Rajan M.D. UROLOGIST: Clark Rivera M.D. COLOR TESTER: Piero Liu M.D. NEUROLOGIST: Etelvina Macdonald M.D. CHIEF COMPLAINT: "I have been feeling short of breath for the past week or two. 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 Rajan along with myasthenia gravis with IVIG administration for 5 days every 5 weeks under the supervision of Dr. Macdonald. The patient had a prolonged hospitalization since December due to recent back surgery. She had finally discharged beginning of February. At that time, she has been off and on Coumadin for multiple surgeries. She was finally restarted back on her Coumadin on 02/14/2017 and she has not been therapeutic. She just recently had a PICC line that was pulled after it had caused her to have some swelling in her left upper extremity, and as a result, had a superficial thrombosis. She states that the swelling in her upper extremity along with swelling in her hand is much better. The PICC line is out. She was using her port to complete therapy of Ancef. She uses her port also to receive myasthenia gravis which she is due for a dose of IVIG in the next week or two. The patient stated that she has been having some hypoxia, home health had checked her O2 saturation, it has been in the 80s. She saw Dr. Mark this morning and her O2 saturation was around 83%, and she was accepted by myself as a direct admit for workup of her hypoxia, strangely she is saturating 94% on room air using our hospital equipment. The patient states that she has some chest tightness, she noticed some swelling in her lower extremities which is relatively new. She has been having these low-grade fever even off antibiotic. Denies chest pain, but does admit to some chest tightness. No pleuritic pain appreciated. A mild dry cough. REVIEW OF SYSTEMS: As per HPI. Otherwise, 10-point systems reviewed and are negative. PAST MEDICAL HISTORY: Type 2 diabetes; right upper extremity DVT x2, on chronic Coumadin; hypertension; hematuria, followed Dr. Rivera; cystocele; rectocele; myasthenia gravis with a History And Physical [address] [address] NAME: JOHN QUINTERO : [birth year] STATUS : ADM IN [facility]#: [id number] AGE: 62 ADM/REG DATE : 02/27/17 MR#: [id number] REPORT SERV DATE: 02/27/17 DICTATED BY: VIVIAN BRASHER DATE: 02/27/17 REPORT STATUS : Draft TRANSCRIBED BY: MODTeja DATE: 02/27/17 history of plasmapheresis and currently taking IVIG therapy; lumbar spine surgery with a recent wound dehiscence and infection requiring two weeks of IV Ancef; history of cervical spinal stenosis; osteoarthritis; morbid obesity; asthma; left kidney cyst; superficial venous thrombosis involving the left cephalic vein. PAST SURGICAL HISTORY: Cholecystectomy in 1999, tonsillectomy in 1992, closed fracture of the ankle in 02/2013, D and C in 2004, thymectomy in 1972, hysterectomy for uterine cancer in 08/2015, right knee scope 2007, left shoulder scope by Dr. Boaz Berrios in 06/2011, lumbar laminectomy 2016, right Port-A-Cath placement in [address] Zamora, right TKA in [address] Rouse, colonoscopy in 2013, cystoscopy in 2013, microdiskectomy, wound VAC placement for postoperative wound infection on 02/06/2017, I and D, washout of lumbar spine wound with debridement of the skin edges in 01/2017, removal of previously placed VAC sponge in 01/2017, I and D of lumbar spine with debridement of skin, placement of wound VAC sponge in early 01/2017, L4 through S1 open laminectomy, bilateral foraminotomies with decompression of the L4 to S1 nerve roots in 12/2016. ALLERGIES: NO KNOWN ALLERGIES. SOCIAL HISTORY: The patient is disabled, lives in a multilevel home with her mother and brother and [id number]. Uses a walker, occasionally and a cane. She is single, has no children. No smoking. No alcohol. FAMILY HISTORY: Positive for diabetes and heart disease. MEDICATIONS: Include atenolol 75 mg daily, cholestyramine 4 g daily, cyclobenzaprine 10 mg daily, gabapentin 600 mg three times a day, loperamide three times a day, Mestinon 60 mg 1 to 3 times daily, mycophenolate mofetil 1000 mg twice a day, Percocet p.r.n. pain, potassium chloride 20 mEq, prednisone 10 mg daily, Prevalite, triamcinolone, warfarin 4 mg daily, Xopenex p.r.n. shortness of breath. PHYSICAL EXAMINATION: VITAL SIGNS: She is saturating 94% on room air. Blood pressure is 178/91, temperature is 98.8, pulse is 92. GENERAL: She is in no acute distress, alert and oriented x3, very pleasant. HEENT: Normocephalic and atraumatic head. Extraocular muscles intact. Oropharynx is clear. NECK: Supple. No JVD appreciated but difficult to examine. CARDIAC: Regular rhythm. No murmurs, rubs, or gallops. PULMONARY: very diminished breath sounds, especially on the right. ABDOMEN: Obese, nontender, nondistended. Positive bowel sounds. EXTREMITIES: Show 2+ pitting edema in her lower extremity. She has about 2+ nonpitting edema in her left hand, 1+ nonpitting edema in her left upper extremity. NEUROLOGIC: No focal deficits. PSYCHIATRIC: The patient is cooperative. Mood is appropriate. SKIN: Warm and dry. LABORATORY DATA: Pending. History And Physical [address] [address] NAME: JOHN QUINTERO : [birth year] STATUS : ADM IN [facility]#: [id number] AGE: 62 ADM/REG DATE : 02/27/17 MR#: [id number] REPORT SERV DATE: 02/27/17 DICTATED BY: VIVIAN BRASHER DATE: 02/27/17 REPORT STATUS : Draft TRANSCRIBED BY: HIEN DATE: 02/27/17 IMPRESSION: 1. Reported hypoxemia. Given the fact that this patient has had multiple medical issues, the differential is extremely wide. She could have a myasthenia gravis exacerbation versus a pulmonary embolism as she has been having difficulty being therapeutic, has been off and on Coumadin for quite some time versus an acute heart failure exacerbation as evidenced by her decreased breath sounds and lower extremity edema versus pleural effusion or mucus plugging based on her very diminished breath sounds on exam versus an infectious etiology such as pericarditis given her history of low-grade fever with some chest tightness. 2. Myasthenia gravis. 3. Status post lumbar infection with wound dehiscence, status post IV Ancef with current placement of wound VAC. 4. History of DVT x2, on chronic anticoagulation. 5. Morbid obesity. 6. Asthma without exacerbation. PLAN: 1. Obtain a CBC, CMP, coags. 2. Blood cultures, we will obtain. 3. Do a CT angio of her chest to evaluate for pulmonary emboli or any pulmonary etiology of her hypoxia. 4. A 2D echocardiogram to rule out pericardial effusion and congestive heart failure. 5. We will obtain an EKG. 6. We will obtain 1 troponin. 7. We Will obtain an ABG. NED/HIEN Vivian Brasher MD / [id number] CC: MD Marc Lanier M.D. Daniel Smith, M.D.
--- NOTE | ~2017-02-27 | DS ---
Discharge Summary [facility] [address] [place]. [address] NAME: JOHN QUINTERO : 53 STATUS : DIS IN PAT#: [id number] AGE: 62 ADM/REG DATE : 02/27/17 MR#: [id number] REPORT SERV DATE: 03/04/17 DICTATED BY: VIVIAN BRASHER DATE: 03/03/17 REPORT STATUS : Draft TRANSCRIBED BY: MODL DATE: 03/03/17 ADMISSION DATE: 02/27/2017 DISCHARGE DATE: 03/03/2017 REASON FOR ADMISSION: Direct admission from Dr. Marc Mark' office for hypoxia. HISTORY OF PRESENT ILLNESS: Please refer to my H and P dated 02/27/2017 for complete details regarding the patient's admission. In brief, the patient was admitted to the Hospital Service for management and evaluation of her hypoxia. HOSPITAL COURSE: The patient had an uncomplicated hospital course. She had some decreased O2 saturation levels at Dr. Mark' office and with Home Health. She was directly admitted for workup of her hypoxia. She had a CT angio of her chest as the patient has been off and on her Coumadin for her multiple back surgeries. CT angio of her chest showed no evidence of pulmonary embolus. There was mild bibasilar subsegmental atelectasis, trace pleural effusion. There was some mild cardiomegaly. She then had an echocardiogram which showed an EF of 50% to 55%, normal right ventricular chamber size and systolic function. No valvular regurgitation or stenosis. There was no mention on whether or not she had any diastolic dysfunction. The patient was started on Lasix diuresis that she had some lower extremity edema, trace pleural effusion, and a low albumin. She was eventually weaned off oxygen. ABG the day prior to discharge showed improvement in her hypoxemia. Her pO2 was 64 on room air and saturating 92%. The patient's hypoxia was likely due to hypervolemia secondary to either acute diastolic heart failure or hypoalbuminemia. At any rate, she has been diuresed aggressively with IV Lasix with the addition of metolazone. Two days ago, she felt that she was getting dizzy when she was standing up and, therefore, her IV Lasix was changed to once daily oral Lasix and the discontinuation of metolazone. The patient has reached maximal hospitalization. We did have Wound Care evaluate her wound care and her wound VAC. She will be discharged home today in a stable condition. Follow up with Dr. Mark with the resumption of home care and wound care and the wound VAC. DISCHARGE DIAGNOSES: 1. Acute hypoxic respiratory failure, now resolved. 2. Likely obstructive sleep apnea with obesity hypoventilation syndrome. 3. Myasthenia gravis, controlled. 4. Morbid obesity. 5. History of deep venous thrombosis, on chronic Coumadin therapy. 6. Recent wound infection, status post wound VAC. 7. Hypervolemia likely secondary to hypoalbuminemia. PROCEDURES: Include CT angio of the chest, echocardiogram. DISCHARGE MEDICATIONS: Include atenolol 50 mg every morning, cholestyramine 4 g twice a day, gabapentin 600 mg four times a day, Imodium with meals, CellCept 1000 mg twice a day, potassium chloride 20 mEq twice a day, Mestinon 60 mg three times a day, spironolactone 50 mg every morning, valsartan 320 mg every morning, Coumadin 4 mg with supper, prednisone 10 mg long-term therapy, IVIG, Percocet p.r.n., Flexeril, Xopenex, Voltaren, Lasix 40 mg once a Discharge Summary [address] [address] NAME: JOHN QUINTERO : 53 STATUS : DIS IN PAT#: [id number] AGE: 62 ADM/REG DATE : 02/27/17 MR#: [id number] REPORT SERV DATE: 03/04/17 DICTATED BY: VIVIAN BRASHER DATE: 03/03/17 REPORT STATUS : Draft TRANSCRIBED BY: HIEN DATE: 03/03/17 day. FOLLOWUP: The patient will follow up with Dr. Mark as scheduled and Dr. Richardson, who will resume home health. Spending over 30 minutes discharge planning and coordination of care. NED/HIEN Vivian Brasher MD / [id number] CC: MD Marc Lanier M.D. Daniel Smith, M.D. Adele Ackell, M.D. DO Piero Greer M.D. Ricardo Rajan M.D.
[2017-02-27 15:51] LABS: BE (BASE EXCESS) 3.2 MEQ/L (0 +/- 2.5); HCO3 (ACTUAL BICARBONATE) 27.9 MEQ/L (23-27); INSTRUMENT SERIAL # 8083; PCO2 (CO2 TENSION) 43 MMHG (35-45); PO2 (O2 TENSION) 55 MMHG (79-93); pH 7.43 (7.37-7.43)
[2017-02-27 15:52] LABS: CARBOXYHEMOGLOBIN 0.2 % (0-3); HEMOBLOGIN CONTENT 10.4 G/DL (12-16); METHEMOGLOBIN 0.4 % (0-3); O2 CONTENT 12.9 VOL% (18-24); OPERATOR ID 32214; SAMPLE Arterial
[2017-02-27] MEDS ORDERED: PYRID60 PO ×2 (16:29→16:58)
[2017-02-27] MEDS ORDERED: KDUR10 PO (16:33)
[2017-02-27] MEDS ORDERED: PCET PO (16:49)
[2017-02-27] MEDS ORDERED: NEUR600 PO (16:49)
[2017-02-27] MEDS ORDERED: CIP5 PO (16:53)
[2017-02-27] MEDS ORDERED: FLEX PO (16:53)
[2017-02-27] MEDS ORDERED: P10 PO (16:53)
[2017-02-27] MEDS ORDERED: SPIRO50 PO (16:54)
[2017-02-27] MEDS ORDERED: ATEN50 PO (16:54)
[2017-02-27] MEDS ORDERED: DIOVAN320 MG PO (16:55)
[2017-02-27] MEDS ORDERED: IMOD PO (16:56)
[2017-02-27] MEDS ORDERED: PREVALITE4 G1 PO (16:56)
[2017-02-27] MEDS ORDERED: XOPENEX HFA INH (16:57)
[2017-02-27] MEDS ORDERED: VOLTAREN1 % TOP (16:57)
[2017-02-27] MEDS ORDERED: KLOR-CON M2020 MEQ PO (16:59)
[2017-02-27] MEDS ORDERED: COUMADIN4 MG PO (17:00)
[2017-02-27 17:32] LABS: BASOPHILS 0.2 %; BASOPHILS ABSOLUTE 0.02 10/3/uL (0.0-0.16); EOSINOPHILS 5.4 %; EOSINOPHILS ABSOLUTE 0.53 10/3/uL (0.0-0.53); HEMATOCRIT 34.6 % (36.0-48.0); HEMOGLOBIN 10.3 g/dL (12.0-16.0); IMMATURE GRANULOCYTES 0.3 %; IMMATURE GRANULOCYTES ABSOLUTE 0.03 10/3/uL (0.0-0.11); LYMPHOCYTES 17.7 %; LYMPHOCYTES ABSOLUTE 1.75 10/3/uL (0.67-4.30); MANUAL DIFF NO %; MEAN CORPUS HGB CONC 29.8 g/dL (32.0-36.0); MEAN CORPUSCULAR VOLUME 90.6 fL (80-100); MEAN PLATELET VOLUME 9.5 fL (9.2-13.0); MONOCYTES 5.4 %; MONOCYTES ABSOLUTE 0.53 10/3/uL (0.21-1.20); NEUTROPHILS ABSOLUTE 7.04 10/3/uL (2.02-8.40); PLATELET COUNT 308 10/3/uL (150-400); RBC DISTRIBUTION WIDTH 15.9 % (12.0-16.0); RED CELL COUNT 3.82 10/6/uL (4.0-5.6); WHITE BLOOD CELLS 9.9 10/3/uL (4.5-10.5)
[2017-02-27 17:50] LABS: CHLORIDE, SERUM 108 MMOL/L (96-112); CO2 (CARBON DIOXIDE) 31 MMOL/L (24-34); CPK 59 U/L (0-200); GFR AFRICAN AMERICAN 112 ML/MIN (>=60); GFR NON AFRICAN AMERICAN 97 ML/MIN (>=60); GLUCOSE, SERUM 83 MG/DL (60-99); POTASSIUM, SERUM 3.2 MMOL/L (3.5-5.3); SGOT(AST) 15 U/L (5-40); SGPT(ALT) 10 U/L (5-65); SODIUM, SERUM 145 MMOL/L (135-148); TOTAL BILIRUBIN 0.6 MG/DL (0-1.2); TOTAL PROTEIN 7.2 G/DL (6.0-8.5); TROPONIN I 0.02 NG/ML (<0.05)
[2017-02-27 17:51] LABS: BUN (BLOOD UREA NITROGEN) 5 MG/DL (6-23)
[2017-02-27 17:52] LABS: A/G RATIO 0.7 (0.7-1.9); ALKALINE PHOSPHATASE 222 U/L (45-117); CALCIUM, SERUM 8.6 MG/DL (8.5-10.4); CK-MB 1.3 NG/ML; GLOBULIN 4.2 G/DL (2.5-4.1)
[2017-02-27 21:21] LABS: INTERNATIONAL NORMAL RATI 2.1 UNITS (-)
[2017-02-27 21:24] LABS: PARTIAL THROMBO TIME 131.3 SEC (22.5-37.2); PROTIME (NOT ORD) 23.1 SEC (12.0-14.5)
[2017-02-28 05:37] LABS: BASOPHILS 0.1 %; BASOPHILS ABSOLUTE 0.01 10/3/uL (0.0-0.16); EOSINOPHILS 7.7 %; EOSINOPHILS ABSOLUTE 0.67 10/3/uL (0.0-0.53); HEMATOCRIT 32.9 % (36.0-48.0); HEMOGLOBIN 9.7 g/dL (12.0-16.0); IMMATURE GRANULOCYTES 0.3 %; IMMATURE GRANULOCYTES ABSOLUTE 0.03 10/3/uL (0.0-0.11); LYMPHOCYTES 17.9 %; LYMPHOCYTES ABSOLUTE 1.57 10/3/uL (0.67-4.30); MEAN CORPUS HGB CONC 29.5 g/dL (32.0-36.0); MEAN CORPUSCULAR HEMOGLOB 26.9 pg (26.0-34.0); MEAN CORPUSCULAR VOLUME 91.1 fL (80-100); MEAN PLATELET VOLUME 9.7 fL (9.2-13.0); MONOCYTES 8.5 %; MONOCYTES ABSOLUTE 0.74 10/3/uL (0.21-1.20); NEUTROPHILS 65.5 %; NEUTROPHILS ABSOLUTE 5.73 10/3/uL (2.02-8.40); PLATELET COUNT 373 10/3/uL (150-400); RED CELL COUNT 3.61 10/6/uL (4.0-5.6); WHITE BLOOD CELLS 8.8 10/3/uL (4.5-10.5)
[2017-02-28 05:38] LABS: MANUAL DIFF NO %
[2017-02-28 05:48] LABS: BUN (BLOOD UREA NITROGEN) 5 MG/DL (6-23); CHLORIDE, SERUM 109 MMOL/L (96-112); CO2 (CARBON DIOXIDE) 30 MMOL/L (24-34); CREATININE 0.59 MG/DL (0.55-1.02); GFR AFRICAN AMERICAN 113 ML/MIN (>=60); GFR NON AFRICAN AMERICAN 98 ML/MIN (>=60); PHOSPHORUS, SERUM 4.3 MG/DL (2.5-4.5); POTASSIUM, SERUM 3.7 MMOL/L (3.5-5.3); SODIUM, SERUM 147 MMOL/L (135-148)
[2017-02-28 05:52] LABS: GLUCOSE, SERUM 102 MG/DL (60-99)
[2017-02-28 08:38] LABS: PROTIME (NOT ORD) 22.7 SEC (12.0-14.5)
[2017-03-01 06:02] LABS: BUN (BLOOD UREA NITROGEN) 6 MG/DL (6-23); CALCIUM, SERUM 8.3 MG/DL (8.5-10.4); CHLORIDE, SERUM 105 MMOL/L (96-112); CO2 (CARBON DIOXIDE) 32 MMOL/L (24-34); CREATININE 0.65 MG/DL (0.55-1.02); GFR AFRICAN AMERICAN 110 ML/MIN (>=60); GFR NON AFRICAN AMERICAN 94 ML/MIN (>=60); GLUCOSE, SERUM 94 MG/DL (60-99); POTASSIUM, SERUM 3.3 MMOL/L (3.5-5.3); SODIUM, SERUM 145 MMOL/L (135-148)
[2017-03-01 06:03] LABS: INTERNATIONAL NORMAL RATI 2.1 UNITS (-); PROTIME (NOT ORD) 23.3 SEC (12.0-14.5)
[2017-03-01 06:04] LABS: PHOSPHORUS, SERUM 3.1 MG/DL (2.5-4.5)
[2017-03-01 06:11] LABS: BASOPHILS 0.1 %; BASOPHILS ABSOLUTE 0.01 10/3/uL (0.0-0.16); EOSINOPHILS 7.6 %; EOSINOPHILS ABSOLUTE 0.66 10/3/uL (0.0-0.53); HEMATOCRIT 33.3 % (36.0-48.0); HEMOGLOBIN 10.1 g/dL (12.0-16.0); IMMATURE GRANULOCYTES 0.1 %; IMMATURE GRANULOCYTES ABSOLUTE 0.01 10/3/uL (0.0-0.11); LYMPHOCYTES 22.1 %; LYMPHOCYTES ABSOLUTE 1.91 10/3/uL (0.67-4.30); MEAN CORPUS HGB CONC 30.3 g/dL (32.0-36.0); MEAN CORPUSCULAR HEMOGLOB 27.2 pg (26.0-34.0); MEAN CORPUSCULAR VOLUME 89.5 fL (80-100); MEAN PLATELET VOLUME 9.8 fL (9.2-13.0); MONOCYTES 9.5 %; MONOCYTES ABSOLUTE 0.82 10/3/uL (0.21-1.20); NEUTROPHILS 60.6 %; NEUTROPHILS ABSOLUTE 5.24 10/3/uL (2.02-8.40); PLATELET COUNT 399 10/3/uL (150-400); RED CELL COUNT 3.72 10/6/uL (4.0-5.6); WHITE BLOOD CELLS 8.7 10/3/uL (4.5-10.5)
[2017-03-01 06:12] LABS: MANUAL DIFF NO %
[2017-03-02 05:59] LABS: BASOPHILS 0.2 %; BASOPHILS ABSOLUTE 0.02 10/3/uL (0.0-0.16); EOSINOPHILS ABSOLUTE 0.57 10/3/uL (0.0-0.53); HEMATOCRIT 34.6 % (36.0-48.0); HEMOGLOBIN 10.6 g/dL (12.0-16.0); IMMATURE GRANULOCYTES 0.2 %; IMMATURE GRANULOCYTES ABSOLUTE 0.02 10/3/uL (0.0-0.11); LYMPHOCYTES 19.8 %; LYMPHOCYTES ABSOLUTE 2.27 10/3/uL (0.67-4.30); MEAN CORPUS HGB CONC 30.6 g/dL (32.0-36.0); MEAN CORPUSCULAR HEMOGLOB 26.8 pg (26.0-34.0); MEAN CORPUSCULAR VOLUME 87.4 fL (80-100); MEAN PLATELET VOLUME 9.5 fL (9.2-13.0); MONOCYTES 9.2 %; MONOCYTES ABSOLUTE 1.05 10/3/uL (0.21-1.20); NEUTROPHILS 65.6 %; NEUTROPHILS ABSOLUTE 7.53 10/3/uL (2.02-8.40); PLATELET COUNT 407 10/3/uL (150-400); RBC DISTRIBUTION WIDTH 16.1 % (12.0-16.0); RED CELL COUNT 3.96 10/6/uL (4.0-5.6); WHITE BLOOD CELLS 11.5 10/3/uL (4.5-10.5)
[2017-03-02 06:02] LABS: INTERNATIONAL NORMAL RATI 2.2 UNITS (-); PROTIME (NOT ORD) 24.2 SEC (12.0-14.5)
[2017-03-02 06:03] LABS: MANUAL DIFF NO %
[2017-03-02 06:12] LABS: BUN (BLOOD UREA NITROGEN) 8 MG/DL (6-23); CALCIUM, SERUM 8.6 MG/DL (8.5-10.4); CHLORIDE, SERUM 98 MMOL/L (96-112); CO2 (CARBON DIOXIDE) 35 MMOL/L (24-34); CREATININE 0.67 MG/DL (0.55-1.02); GFR AFRICAN AMERICAN 108 ML/MIN (>=60); GFR NON AFRICAN AMERICAN 94 ML/MIN (>=60); PHOSPHORUS, SERUM 3.3 MG/DL (2.5-4.5); POTASSIUM, SERUM 3.2 MMOL/L (3.5-5.3); SODIUM, SERUM 142 MMOL/L (135-148)
[2017-03-02 06:19] LABS: GLUCOSE, SERUM 113 MG/DL (60-99)
[2017-03-02 14:45] LABS: ALLENS TEST Pos; BE (BASE EXCESS) 10.9 MEQ/L (0 +/- 2.5); CARBOXYHEMOGLOBIN 1.1 % (0-3); HCO3 (ACTUAL BICARBONATE) 35.6 MEQ/L (23-27); HEMOBLOGIN CONTENT 11.8 G/DL (12-16); INSTRUMENT SERIAL # 8083; METHEMOGLOBIN 0.4 % (0-3); O2 CONTENT 15.1 VOL% (18-24); PCO2 (CO2 TENSION) 47 MMHG (35-45); PO2 (O2 TENSION) 64 MMHG (79-93); SAMPLE Arterial; pH 7.49 (7.37-7.43)
[2017-03-03 06:04] LABS: INTERNATIONAL NORMAL RATI 2.2 UNITS (-)
[2017-03-03] MEDS ORDERED: L40 PO (12:27)
== END 2017-03-03 15:45 | disposition home health service (06) | DRG 291 ==
LOC: 5SO 13:49
PROVIDERS: Internal Medicine
DX: I11.0 Hypertensive heart disease with heart failure (principal); J96.01 Acute respiratory failure with hypoxia; I50.31 Acute diastolic (congestive) heart failure; G70.00 Myasthenia gravis without (acute) exacerbation; J45.909 Unspecified asthma, uncomplicated; E11.9 Type 2 diabetes mellitus without complications; E66.01 Morbid (severe) obesity due to excess calories; Z86.718 Personal history of other venous thrombosis and embolism; Z79.01 Long term (current) use of anticoagulants; Z79.52 Long term (current) use of systemic steroids; Z88.8 Allergy status to other drugs, medicaments and biological substances; Z79.899 Other long term (current) drug therapy; Z98.890 Other specified postprocedural states; Z82.49 Family history of ischemic heart disease and other diseases of the circulatory system; Z83.3 Family history of diabetes mellitus
CPT/HCPCS: 36600; 71275; 80048; 80053; 82040; 82550; 82553; 82805; 82962; 83735; 83880; 84100; 84484; 85025; 85610; 85730; 87040; 93005; 93306; A9270-GY; J2250; J3010; Q9967